=== PATIENT | female | born 2000 | race Caucasian/White ===

== ENCOUNTER 2019-06-23 22:08 | Emergency (ER) | payer MEDICAID, SELFPAY ==
--- NOTE | 2019-06-23 22:13 | ED_ITS ---
Entered by Lori Decker, acting as scribe for Janki Sheikh MD HPI - Skin/Abscess/Foreign Bdy General: Chief complaint: Skin/Abscess/Foreign Body Stated complaint: POSS INFECTION R ARM Time Seen by Provider: 06/23/19 22:13 Source: patient Mode of arrival: ambulatory History of Present Illness: HPI narrative: 18 y/ female presents to the ED with complaint of possible right arm infection. Pt states she noticed the red spot just today. She believed it to be a spider bite. 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 Slight pain that is sharp in nature. complaint: abscess/boil Onset (ago): hour(s) Location: RUE Severity: mild Pain Consistency: constant Associated symptoms: Deny chills, fever(s), nausea or vomiting Review of Systems Const: Denies: fever, chills, body aches or change in appetite Eyes: Denies: blurry vision or eye discomfort ENMT: Denies: throat pain or dental pain Card: Denies: chest pain Resp: Denies: shortness of breath GI: Denies: abdominal pain, nausea, vomiting or diarrhea : Denies: painful urination Musc: Denies: neck pain or back pain Skin/Breast: Reports: redness, skin tenderness, skin swelling and new lesion Neuro: Denies: headache Psych: Denies: depression Yfn/Lymph: Denies: easy bruising All/Imm: Denies: hives PFSH ED PFSH: Social History Smoking and tobacco status: current every day smoker Physical Exam Const: COMMON NORMALS: no apparent distress, oriented x3 and healthy appearing HENMT: COMMON NORMALS: normocephalic and head/scalp atraumatic HEAD & SCALP: normocephalic and atraumatic Eye: COMMON NORMALS: PERRL and EOMs intact bilaterally PUPIL: Yes PERRL Neck/C-Spine: COMMON NORMALS: full ROM and supple Chest: COMMONS NORMALS: inspection of chest normal and palpation of chest normal Resp: COMMON NORMALS: normal respiratory effort, no retractions, no use of accessory muscles and clear to auscultation bilaterally AUSCULTATION: clear to auscultation bilaterally Cardio: COMMON NORMALS: regular rate, regular rhythm and no murmurs RATE: regular rate RHYTHM: regular rhythm GI: COMMON NORMALS: normal to inspection, nondistended, normoactive bowel sounds, soft to palpation, non-tender and no masses PALPATION: Yes soft Extremity: COMMON NORMALS: normal to inspection and full ROM Neuro: COMMON NORMALS: oriented x3, moves all extremities and no focal motor deficits Psych: COMMON NORMALS: mental status grossly normal, thought process normal and cooperative THOUGHT PROCESS: normal thought process Skin: OTHER: abscess noted to right forearm Procedures Abscess I/D Site: upper extremity Side (if applicable): right Local Anesthetic: lidocaine 1% Amount of anesthesia used (mL): 5 Technique: incised with #11 blade Amount of fluid expressed (mL): 5 Packing used?: none Course Vital Signs: Vital signs: Vital Signs Temperature 97.9 F 06/23/19 22:19 Pulse Rate 86 06/23/19 22:19 Respiratory Rate 18 06/23/19 22:19 Blood Pressure 133/96 06/23/19 22:19 Pulse Oximetry 99 06/23/19 22:19 MDM - Skin/Abscess/Foreign Bdy MDM Narrative: Medical decision making narrative: Patient presents here with a small abscess to his right forearm. I incised her abscess and drained it. She tolerated procedure well. Will start patient on Bactrim and she is to do warm soaks at home. Patient understands and agrees to plan. Discharge Plan Discharge Patient Disposition: Home, Self-Care Clinical Impression: Abscess of skin or subcutaneous tissue Qualifiers: Site of cutaneous abscess: extremity Site of cutaneous abscess of extremity: upper extremity Laterality: right Qualified Code(s): L02.413 - Cutaneous abscess of right upper limb Condition: Stable Prescriptions: New Bactrim DS 800-160 mg tablet 1 tab PO BID 10 Days Qty: 20 RF: 0 Discharge Orders: Discharge Order (Routine); Ordered 06/23/19 Ordered By: Janki Sheikh Referrals: Saumya Leija MD [Primary Care Provider] - Discharge Diet: Advance as tolerated Discharge Activity: Resume usual activity Patient Instructions: Abscess (ED) Coding Level of Care Code 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
[2019-06-23 22:19] VITALS: BP 133/96; PULSE 86; RESP 18; TEMP 36.6; O2SAT 99; BMI 40.3
[2019-06-23 22:33] VITALS: BP 113/59; PULSE 88; RESP 17; O2SAT 98
== END 2019-06-23 22:33 | disposition home or self-care (01) ==
LOC: ER 22:22
PROVIDERS: Emergency Provider Emergency Medicine; PCP Pediatrics Adolescent Medicine
DX: L02.413 Cutaneous abscess of right upper limb (principal); F17.200 Nicotine dependence, unspecified, uncomplicated
CPT/HCPCS: 10060; 12345; 99281; 99282

== ENCOUNTER 2020-02-09 17:39 | Emergency (ER) | payer MEDICAID, SELFPAY ==
[2020-02-09 18:07] VITALS: PULSE 90; RESP 18; TEMP 36.3; O2SAT 99; BMI 48.0
--- NOTE | 2020-02-09 18:57 | ED_ITS ---
HPI - Headache General: Chief Complaint: Headache Stated Complaint: Migraine 1 week Time Seen by Provider: 02/09/20 18:42 History of Present Illness: HPI Narrative: Patient states that she had a migraine about a week similar to her other migraine she has had but is been about 4 years ago. Denies any stress injury or other problems going on her life. Says she is 80 days later and. She did have a couple test that were positive at the start then a couple that were negative then she went to her primary care provider today reyna labs as said she had a hormone that said she can carry baby but she generally think she is now but like to be checked. MD elicited complaint: migraine Pertinent past history: migraines Onset (ago): day(s) Onset description: gradually Location: frontal and temporal Severity: moderate Quality & Timing: throbbing and dull Exacerbating factors: none, light and noise Relieving factors: dark room Associated symptoms: Reports no associated symptoms; Deny chest pain, fever(s), nausea, rash or vomiting Treatments prior to arrival: none Review of Systems Const: Denies: fever(s), chills or body aches Eyes: Denies: change in vision or blurry vision ENMT: Denies: throat pain or nasal congestion Card: Denies: chest pain or dyspnea on exertion Resp: Denies: dyspnea, productive cough or non-productive cough GI: Denies: abdominal pain, nausea or vomiting : Reports: amenorrhea Musc: Denies: extremity pain Skin/Breast: Denies: rash Neuro: Reports: headache(s) Psych: Denies: anxiety or depression Yfn/Lymph: Denies: easy bruising PFSH ED PFSH: Social History Smoking and tobacco status: current every day smoker Physical Exam Const: COMMON NORMALS: no acute distress, average body habitus and patient oriented x3 HENMT: COMMON NORMALS: normocephalic HEAD & SCALP: normal to inspection and normocephalic FACE & SINUS: normal facial exam Eye: COMMON NORMALS: conjunctivae normal GENERAL EYE: appearance normal, both eyes and all related structures CONJUNCTIVA: Yes conjunctivae normal Neck/C-Spine: COMMON NORMALS: no JVD Chest: COMMONS NORMALS: normal inspection of the chest Resp: COMMON NORMALS: normal respiratory effort and clear to auscultation bilaterally AUSCULTATION: clear to auscultation bilaterally Cardio: COMMON NORMALS: no JVD, regular rate and regular rhythm RATE: regular rate RHYTHM: regular rhythm GI: COMMON NORMALS: Normal to inspection, nondistended, normoactive bowel sounds present Extremity: COMMON NORMALS: normal to inspection and full ROM Neuro: COMMON NORMALS: patient oriented x3 and CN's II-XII intact bilaterally Course Vital Signs: Vital signs: Vital Signs Temperature 97.3 F L 02/09/20 18:07 Pulse Rate 90 02/09/20 18:07 Respiratory Rate 18 02/09/20 18:07 Pulse Oximetry 99 02/09/20 18:07 MDM - Headache Lab Data: Labs: Lab Results 02/09/20 Range/Units 19:14 HCG, Qual Negative (Negative) Discharge Plan Discharge Patient Disposition: Home Clinical Impression: Amenorrhea Migraine Qualifiers: Migraine type: without aura Status migrainosus presence: without status migrainosus Intractability: intractable Qualified Code(s): G43.019 - Migraine without aura, intractable, without status migrainosus Condition: Stable Prescriptions: New sumatriptan succinate 50 mg tablet See Rx Instructions .ROUTE .COMPLEX Qty: 9 RF: 0 Discharge Orders: Discharge Order (Routine); Ordered 02/09/20 Ordered By: Dc Alcantara Referrals: Saumya Leija MD [Primary Care Provider] - Discharge Diet: Usual diet Discharge Activity: Increase activity as tolerated Patient Instructions: Migraine Headache (ED) Activity Restrictions/Additional Instructions: Follow-up with medical provider as directed. Take medications as prescribed. Return to the ER or your medical provider if condition worsens. Please read and understand discharge instructions. If any questions ask please. 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
[2020-02-09] MEDS: SUMAtriptan 6 mg/0.5 mL SDV SUBCUT (19:12)
[2020-02-09] MEDS: ondansetron 4 MG Tablet PO (19:12)
[2020-02-09 19:26] LABS: HCG Qualitative Urine. Negative (Negative)
== END 2020-02-09 20:27 | disposition home or self-care (01) ==
PROVIDERS: Emergency Provider Nurse Practitioner Family; PCP Pediatrics Adolescent Medicine
DX: G43.019 Migraine without aura, intractable, without status migrainosus (principal); N91.2 Amenorrhea, unspecified; F17.210 Nicotine dependence, cigarettes, uncomplicated
CPT/HCPCS: 12345; 81025; 96372; 99281; 99283; J3030; Q0162

== ENCOUNTER 2020-04-25 16:50 | Emergency (ER) | payer BC, MEDICAID, SELFPAY ==
[2020-04-25 16:54] VITALS: BP 136/86; PULSE 96; RESP 18; TEMP 36.3; O2SAT 97; BMI 43.2
--- NOTE | 2020-04-25 17:30 | W.ED.GENADLT ---
HPI - General Adult General: Chief complaint: General Medical Stated complaint: has asthma/sob Time Seen by Provider: 04/25/20 17:12 History of Present Illness: HPI narrative: Patient states that maybe she had an asthma attack earlier she went to get her inhaler and realize it was gone and then she used when she said she did not have much relief from that. She presents here with a history of shortness of breath asthma attack earlier today but feeling fine now. MD complaint: Possible asthma attack post Onset (ago): hour(s) Severity: mild Severity scale (1-10): 1 Exacerbating factors: none Associated symptoms: Reports no associated symptoms; Deny chest pain, dyspnea, headache(s), nausea, rash or vomiting Review of Systems Const: Denies: fever(s), chills or body aches Eyes: Denies: change in vision or blurry vision ENMT: Denies: throat pain or nasal congestion Card: Denies: chest pain or dyspnea on exertion Resp: Reports: wheezing (Now gone); Denies: dyspnea, productive cough or non-productive cough GI: Denies: abdominal pain, nausea or vomiting Musc: Denies: extremity pain Skin/Breast: Denies: rash Neuro: Denies: headache(s) Psych: Denies: anxiety or depression Yfn/Lymph: Denies: easy bruising PFSH ED PFSH: Social History Smoking and tobacco status: current every day smoker Physical Exam Const: COMMON NORMALS: no acute distress, average body habitus and patient oriented x3 HENMT: COMMON NORMALS: normocephalic HEAD & SCALP: normal to inspection and normocephalic FACE & SINUS: normal facial exam Eye: COMMON NORMALS: conjunctivae normal GENERAL EYE: appearance normal, both eyes and all related structures CONJUNCTIVA: Yes conjunctivae normal Neck/C-Spine: COMMON NORMALS: no JVD Chest: COMMONS NORMALS: normal inspection of the chest Resp: COMMON NORMALS: normal respiratory effort and clear to auscultation bilaterally AUSCULTATION: clear to auscultation bilaterally Cardio: COMMON NORMALS: no JVD, regular rate and regular rhythm RATE: regular rate RHYTHM: regular rhythm GI: COMMON NORMALS: Normal to inspection, nondistended, normoactive bowel sounds present Extremity: COMMON NORMALS: normal to inspection and full ROM Neuro: COMMON NORMALS: patient oriented x3 Course Vital Signs: Vital signs: Vital Signs Temperature 97.3 F L 04/25/20 16:54 Pulse Rate 96 04/25/20 16:54 Respiratory Rate 18 04/25/20 16:54 Blood Pressure 136/86 04/25/20 16:54 Pulse Oximetry 97 04/25/20 16:54 Discharge Plan Discharge Patient Disposition: Home Clinical Impression: Asthma Qualifiers: Asthma severity: mild Asthma persistence: intermittent Asthma complication type: uncomplicated Qualified Code(s): J45.20 - Mild intermittent asthma, uncomplicated Condition: Stable Prescriptions: New Proventil HFA 90 mcg/actuation HFA aerosol inhaler 3 inh inhalation Q4H PRN (Reason: shortness of breath or wheezing) Qty: 18 RF: 0 No Action multivitamin Tablet 1 tab PO DAILY@06 RF: 0 metformin 500 mg tablet 500 mg PO DAILY@06 RF: 0 aspirin 325 mg Tablet 325 mg PO PRN RF: 0 Benadryl 25 mg Capsule 25 mg PO PRN RF: 0 Discharge Orders: Discharge ED (Routine); Ordered 04/25/20 Ordered By: Dc Alcantara Referrals: Farideh Metz FNP [Primary Care Provider] - Discharge Diet: Usual diet Discharge Activity: Resume usual activity Patient Instructions: Asthma (ED) Activity Restrictions/Additional Instructions: Follow-up with medical provider as directed. Take medications as prescribed. Return to the ER or your medical provider if condition worsens. Please read and understand discharge instructions. If any questions ask please. 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
[2020-04-25 17:32] VITALS: PULSE 94; RESP 20; O2SAT 98
== END 2020-04-25 17:34 | disposition home or self-care (01) ==
PROVIDERS: Emergency Provider Nurse Practitioner Family; PCP Nurse Practitioner Family
DX: J45.20 Mild intermittent asthma, uncomplicated (principal); Z79.82 Long term (current) use of aspirin; Z79.84 Long term (current) use of oral hypoglycemic drugs; F17.210 Nicotine dependence, cigarettes, uncomplicated
CPT/HCPCS: 12345; 99281

== ENCOUNTER 2020-10-08 01:04 | Emergency (ER) | payer BC, MEDICAID, SELFPAY ==
[2020-10-08 01:10] VITALS: BP 151/79; PULSE 70; RESP 18; TEMP 36.7; O2SAT 97; BMI 46.5
--- NOTE | 2020-10-08 01:37 | ED_ITS ---
Documented by User: NESSA Manning 10/08/20 17:17 HPI - Abdominal Pain General: Chief Complaint: Abdominal Pain Stated Complaint: ABDOMINAL PAIN Time Seen by Provider: 10/08/20 01:23 Source: patient Mode of arrival: ambulatory Limitations: no limitations History of Present Illness: HPI narrative: Patient is a 20-year-old female who presents to ED today with complaint of mid abdominal pain over the past 3 days. Patient tells me pain began fairly quickly and has progressed over the past 3 days. She is having occasional nausea. She had one episode of non-bloody emesis today. She has had normal bowel movements. She has no urinary complaints. She just finished with her menstrual cycle. No fevers, body aches, chills. MD elicited complaint: abdominal pain Pertinent past history: none Radiation: none Migration to: no migration Exacerbating factors: nothing Relieving factors: nothing Associated Symptoms: Reports nausea and vomiting; Denies change in bowel habits, chills, diarrhea, dysuria, fever(s), heartburn and hematemesis Related Data: Date of Last Menstrual Period: 10/08/20 Review of Systems Const: Denies: fever(s), chills, body aches, fatigue or malaise Card: Denies: chest pain Resp: Denies: dyspnea GI: Reports: abdominal pain, nausea and vomiting; Denies: hematemesis, heartburn, diarrhea or change in bowel habits : Denies: flank pain, difficulty voiding, dysuria, urinary frequency, urinary urgency or urinary hesitancy Musc: Denies: neck pain, back pain, extremity pain or joint pain Skin/Breast: Denies: rash Neuro: Denies: headache(s) [facility] ED PFSH: Social History Smoking and tobacco status: current every day smoker Female Reproductive History: Date of last menstrual period: 10/08/20 Physical Exam Const: COMMON NORMALS: no acute distress, patient oriented x3, no limitations and alert NUTRITIONAL APPEARANCE: obese morbidly obese ORIENTATION/CONSCIOUSNESS: Yes awake, Yes oriented to person, Yes oriented to place and Yes oriented to time HENMT: COMMON NORMALS: normocephalic and atraumatic HEAD & SCALP: normocephalic and atraumatic Resp: COMMON NORMALS: normal respiratory effort and clear to auscultation bilaterally AUSCULTATION: clear to auscultation bilaterally Cardio: COMMON NORMALS: regular rate and regular rhythm RATE: regular rate RHYTHM: regular rhythm GI: COMMON NORMALS: Normal to inspection, nondistended, normoactive bowel soun ds present and Soft to palpation INSPECTION: Yes normal to inspection PALPATION: Yes Soft to palpation and Yes Tenderness to palpation present (GI) (diffusely) OTHER: exam limited secondary to body habitus : COMMON NORMALS: Yes no CVA tenderness BLADDER/KIDNEY EXAM: Yes no CVA tenderness Back/Pelvis: COMMON NORMALS: no CVA tenderness Extremity: COMMON NORMALS: normal to inspection Neuro: COMMON NORMALS: patient oriented x3 SENSORIUM/ORIENTATION: Yes alert, Yes oriented to person, Yes oriented to place and Yes oriented to time Skin: COMMON NORMALS: no rashes or lesions noted GENERAL SKIN EXAM: no rashes or lesions noted Course Vital Signs: Vital signs: Vital Signs Temperature 98.1 F 10/08/20 05:28 Pulse Rate 77 10/08/20 05:28 Respiratory Rate 15 10/08/20 05:28 Blood Pressure 112/80 10/08/20 05:28 Pulse Oximetry 97 10/08/20 05:28 MDM - Abdominal Pain MDM Narrative: Medical decision making narrative: Care transferred to Dr. Wood pending labs/CT imaging. Lab Data: Labs: Lab Results 10/08/20 10/08/20 10/08/20 Range/Units 02:51 02:51 02:51 WBC 8.2 (4.0-10.0) 10^3/ uL RBC 4.48 (4.1-5.3) 10^6/u L Hgb 13.0 (11.5-15.3) g/dL Hct 40.4 (37.0-47.0) % MCV 90.2 (81-99) fL MCH 29.0 (28.0-34.0) pg MCHC 32.2 (30.0-36.0) g/dL RDW 12.6 (12.1-15.1) % Plt Count 265 (130-400) 10^3/c mm MPV 9.4 (7.4-10.4) fL Neut % (Auto) 49.2 % Lymph % (Auto) 40.9 % Mitchell % (Auto) 7.2 % Eos % (Auto) 1.6 % Baso % (Auto) 0.9 % Neut # (Auto) 4.04 (1.8-7.7) 10^3/u L Lymph # (Auto) 3.4 (0.8-4.8) 10^3/u L Mitchell # (Auto) 0.6 (0.2-0.9) 10^3/u L Eos # (Auto) 0.1 (0.0-0.8) 10^3/u L Baso # (Auto) 0.1 (0.0-0.1) 10^3/u L Nucleated RBC % (a uto) 0 % Nucleated RBCs # 0.0 /100WBC Sodium 139 (136-145) mmol/L Potassium 4.2 (3.5-5.1) mmol/L Chloride 104 (98-107) mmol/L Carbon Dioxide 24 (22-29) mmol/L Anion Gap 15.2 (5-19) BUN 13 (6-20) mg/dL Creatinine 0.7 (0.5-0.9) mg/dL GFR Calculation 105.6 (90-130) mL/min Glucose 95 (65-115) mg/dL Calculated Osmolal ity 288 (285-295) mOsm/k g Calcium 9.1 (8.5-10.5) mg/dL Total Bilirubin 0.3 (0.15-1.2) mg/dL AST 18 (0-32) U/L ALT 23 (0-33) U/L Alkaline Phosphata se 77 (35-105) IU/L Total Protein 6.6 (6.6-8.7) g/dL Albumin 4.0 (3.5-5.2) g/dL Globulin 2.6 (1.3-4.6) g/dL Lipase 21 (13-60) U/L HCG, Qual Negative (Negative) Urine Color (Yellow) Urine Appearance (CLEAR) Urine pH (5-7) Ur Specific Gravit y (1.005-1.030) Urine Protein (Negative) Urine Glucose (UA) (Normal) Urine Ketones (Negative) Urine Blood (Negative) Urine Nitrate (Negative) Urine Bilirubin (Negative) Urine Urobilinogen (Negative) mg/dL Ur Leukocyte Zoe ase (Negative) 10/08/20 Range/Units 02:59 WBC (4.0-10.0) 10^3/ uL RBC (4.1-5.3) 10^6/u L Hgb (11.5-15.3) g/dL Hct (37.0-47.0) % MCV (81-99) fL MCH (28.0-34.0) pg MCHC (30.0-36.0) g/dL RDW (12.1-15.1) % Plt Count (130-400) 10^3/c mm MPV (7.4-10.4) fL Neut % (Auto) % Lymph % (Auto) % Mitchell % (Auto) % Eos % (Auto) % Baso % (Auto) % Neut # (Auto) (1.8-7.7) 10^3/u L Lymph # (Auto) (0.8-4.8) 10^3/u L Mitchell # (Auto) (0.2-0.9) 10^3/u L Eos # (Auto) (0.0-0.8) 10^3/u L Baso # (Auto) (0.0-0.1) 10^3/u L Nucleated RBC % (a uto) % Nucleated RBCs # /100WBC Sodium (136-145) mmol/L Potassium (3.5-5.1) mmol/L Chloride (98-107) mmol/L Carbon Dioxide (22-29) mmol/L Anion Gap (5-19) BUN (6-20) mg/dL Creatinine (0.5-0.9) mg/dL GFR Calculation (90-130) mL/min Glucose (65-115) mg/dL Calculated Osmolal ity (285-295) mOsm/k g Calcium (8.5-10.5) mg/dL Total Bilirubin (0.15-1.2) mg/dL AST (0-32) U/L ALT (0-33) U/L Alkaline Phosphata se (35-105) IU/L Total Protein (6.6-8.7) g/dL Albumin (3.5-5.2) g/dL Globulin (1.3-4.6) g/dL Lipase (13-60) U/L HCG, Qual (Negative) Urine Color Yellow (Yellow) Urine Appearance Clear (CLEAR) Urine pH 6.5 (5-7) Ur Specific Gravit y 1.015 (1.005-1.030) Urine Protein Neg (Negative) Urine Glucose (UA) Norm (Normal) Urine Ketones Negative (Negative) Urine Blood Neg (Negative) Urine Nitrate Negative (Negative) Urine Bilirubin Neg (Negative) Urine Urobilinogen 1 H (Negative) mg/dL Ur Leukocyte Zoe ase Negative (Negative) Discharge Plan Discharge Patient Disposition: Home Clinical Impression: Abdominal pain Qualifiers: Abdominal location: generalized Qualified Code(s): R10.84 - Generalized abdominal pain Condition: Stable Prescriptions: New hydrocodone-acetaminophen 5-325 mg tablet 1 tab PO Q8H PRN (Reason: pain) Qty: 7 RF: 0 Zofran 4 mg tablet 4 mg PO Q6H PRN (Reason: nausea and vomiting) Qty: 10 RF: 0 No Action multivitamin Tablet 1 tab PO DAILY@06 RF: 0 metformin 500 mg tablet 500 mg PO DAILY@06 RF: 0 aspirin 325 mg Tablet 325 mg PO PRN RF: 0 Benadryl 25 mg Capsule 25 mg PO PRN RF: 0 Proventil HFA 90 mcg/actuation HFA aerosol inhaler 3 inh inhalation Q4H PRN (Reason: shortness of breath or wheezing) Qty: 18 RF: 0 Discharge Orders: Discharge ED (Routine); Ordered 10/08/20 Ordered By: Jitendra Wood Referrals: Farideh Metz FNP [Primary Care Provider] - 4-7 days Patient Instructions: Abdominal Pain (ED), Opioid Safety Activity Restrictions/Additional Instructions: Return for fever greater than 100, worsening pain despite treatment, vomiting liquids or medications despite treatment, other concerning symptoms. No cause of your abdominal pain was found on testing today. Coding Level of Care Code ED Insurance Verification Specialist for Chg Fwd Exam Comprehensive Documented by User: Jitendra oWod, 10/08/20 07:06 HPI - Abdominal Pain General: Chief Complaint: Abdominal Pain Stated Complaint: ABDOMINAL PAIN Time Seen by Provider: 10/08/20 01:23 PFS ED PFSH: Social History Smoking and tobacco status: current every day smoker Course Vital Signs: Vital signs: Vital Signs Temperature 98.1 F 10/08/20 05:28 Pulse Rate 77 10/08/20 05:28 Respiratory Rate 15 10/08/20 05:28 Blood Pressure 112/80 10/08/20 05:28 Pulse Oximetry 97 10/08/20 05:28 MDM - Abdominal Pain MDM Narrative: Medical decision making narrative: 20-year-old female with periumbilical belly pain checked out to me by Mrs. Larsen?PRANAV Boo. I agree with her history, evaluation, work-up and treatment. This lady has benign labs, and a negative CT for any acute problems. She will be discharged home with symptomatic care, and asked to follow-up with her PCP. Lab Data: Labs: Lab Results 10/08/20 10/08/20 10/08/20 Range/Units 02:51 02:51 02:51 WBC 8.2 (4.0-10.0) 10^3/ uL RBC 4.48 (4.1-5.3) 10^6/u L Hgb 13.0 (11.5-15.3) g/dL Hct 40.4 (37.0-47.0) % MCV 90.2 (81-99) fL MCH 29.0 (28.0-34.0) pg MCHC 32.2 (30.0-36.0) g/dL RDW 12.6 (12.1-15.1) % Plt Count 265 (130-400) 10^3/c mm MPV 9.4 (7.4-10.4) fL Neut % (Auto) 49.2 % Lymph % (Auto) 40.9 % Mitchell % (Auto) 7.2 % Eos % (Auto) 1.6 % Baso % (Auto) 0.9 % Neut # (Auto) 4.04 (1.8-7.7) 10^3/u L Lymph # (Auto) 3.4 (0.8-4.8) 10^3/u L Mitchell # (Auto) 0.6 (0.2-0.9) 10^3/u L Eos # (Auto) 0.1 (0.0-0.8) 10^3/u L Baso # (Auto) 0.1 (0.0-0.1) 10^3/u L Nucleated RBC % (a uto) 0 % Nucleated RBCs # 0.0 /100WBC Sodium 139 (136-145) mmol/L Potassium 4.2 (3.5-5.1) mmol/L Chloride 104 (98-107) mmol/L Carbon Dioxide 24 (22-29) mmol/L Anion Gap 15.2 (5-19) BUN 13 (6-20) mg/dL Creatinine 0.7 (0.5-0.9) mg/dL GFR Calculation 105.6 (90-130) mL/min Glucose 95 (65-115) mg/dL Calculated Osmolal ity 288 (285-295) mOsm/k g Calcium 9.1 (8.5-10.5) mg/dL Total Bilirubin 0.3 (0.15-1.2) mg/dL AST 18 (0-32) U/L ALT 23 (0-33) U/L Alkaline Phosphata se 77 (35-105) IU/L Total Protein 6.6 (6.6-8.7) g/dL Albumin 4.0 (3.5-5.2) g/dL Globulin 2.6 (1.3-4.6) g/dL Lipase 21 (13-60) U/L HCG, Qual Negative (Negative) Urine Color (Yellow) Urine Appearance (CLEAR) Urine pH (5-7) Ur Specific Gravit y (1.005-1.030) Urine Protein (Negative) Urine Glucose (UA) (Normal) Urine Ketones (Negative) Urine Blood (Negative) Urine Nitrate (Negative) Urine Bilirubin (Negative) Urine Urobilinogen (Negative) mg/dL Ur Leukocyte Zoe ase (Negative) 10/08/20 Range/Units 02:59 WBC (4.0-10.0) 10^3/ uL RBC (4.1-5.3) 10^6/u L Hgb (11.5-15.3) g/dL Hct (37.0-47.0) % MCV (81-99) fL MCH (28.0-34.0) pg MCHC (30.0-36.0) g/dL RDW (12.1-15.1) % Plt Count (130-400) 10^3/c mm MPV (7.4-10.4) fL Neut % (Auto) % Lymph % (Auto) % Mitchell % (Auto) % Eos % (Auto) % Baso % (Auto) % Neut # (Auto) (1.8-7.7) 10^3/u L Lymph # (Auto) (0.8-4.8) 10^3/u L Mitchell # (Auto) (0.2-0.9) 10^3/u L Eos # (Auto) (0.0-0.8) 10^3/u L Baso # (Auto) (0.0-0.1) 10^3/u L Nucleated RBC % (a uto) % Nucleated RBCs # /100WBC Sodium (136-145) mmol/L Potassium (3.5-5.1) mmol/L Chloride (98-107) mmol/L Carbon Dioxide (22-29) mmol/L Anion Gap (5-19) BUN (6-20) mg/dL Creatinine (0.5-0.9) mg/dL GFR Calculation (90-130) mL/min Glucose (65-115) mg/dL Calculated Osmolal ity (285-295) mOsm/k g Calcium (8.5-10.5) mg/dL Total Bilirubin (0.15-1.2) mg/dL AST (0-32) U/L ALT (0-33) U/L Alkaline Phosphata se (35-105) IU/L Total Protein (6.6-8.7) g/dL Albumin (3.5-5.2) g/dL Globulin (1.3-4.6) g/dL Lipase (13-60) U/L HCG, Qual (Negative) Urine Color Yellow (Yellow) Urine Appearance Clear (CLEAR) Urine pH 6.5 (5-7) Ur Specific Gravit y 1.015 (1.005-1.030) Urine Protein Neg (Negative) Urine Glucose (UA) Norm (Normal) Urine Ketones Negative (Negative) Urine Blood Neg (Negative) Urine Nitrate Negative (Negative) Urine Bilirubin Neg (Negative) Urine Urobilinogen 1 H (Negative) mg/dL Ur Leukocyte Zoe ase Negative (Negative) Discharge Plan Discharge Patient Disposition: Home Clinical Impression: Abdominal pain Qualifiers: Abdominal location: generalized Qualified Code(s): R10.84 - Generalized abdominal pain Condition: Stable Prescriptions: New hydrocodone-acetaminophen 5-325 mg tablet 1 tab PO Q8H PRN (Reason: pain) Qty: 7 RF: 0 Zofran 4 mg tablet 4 mg PO Q6H PRN (Reason: nausea and vomiting) Qty: 10 RF: 0 No Action multivitamin Tablet 1 tab PO DAILY@06 RF: 0 metformin 500 mg tablet 500 mg PO DAILY@06 RF: 0 aspirin 325 mg Tablet 325 mg PO PRN RF: 0 Benadryl 25 mg Capsule 25 mg PO PRN RF: 0 Proventil HFA 90 mcg/actuation HFA aerosol inhaler 3 inh inhalation Q4H PRN (Reason: shortness of breath or wheezing) Qty: 18 RF: 0 Discharge Orders: Discharge ED (Routine); Ordered 10/08/20 Ordered By: Jitendra Wood Referrals: Farideh Metz FNP [Primary Care Provider] - 4-7 days Patient Instructions: Abdominal Pain (ED), Opioid Safety Activity Restrictions/Additional Instructions: Return for fever greater than 100, worsening pain despite treatment, vomiting liquids or medications despite treatment, other concerning symptoms. No cause of your abdominal pain was found on testing today. Coding Level of Care Code ED Insurance Verification Specialist for Chg Fwd Exam Comprehensive
--- NOTE | 2020-10-08 02:03 | CTR_ITS ---
PROCEDURE INFORMATION: Exam: CT Abdomen And Pelvis With Contrast Exam date and time: 10/08/2020 2:03 AM Age: 20 years old Clinical indication: Abdominal pain; Generalized TECHNIQUE: Imaging protocol: Computed tomography of the abdomen and pelvis with contrast. Radiation optimization: All CT scans at this facility use at least one of these dose optimization techniques: automated exposure control; mA and/or kV adjustment per patient size (includes targeted exams where dose is matched to clinical indication); or iterative reconstruction. Contrast material: VISI; Contrast volume: 95 ml; Contrast route: INTRAVENOUS (IV); COMPARISON: US pelvic complete* [id number] 08/16/2019 10:44 AM RADIATION DOSE METRICS: Total DLP (mGy-cm): 1910.6 FINDINGS: Liver: Normal. No mass. Gallbladder and bile ducts: Normal. No calcified stones. No ductal dilation. Pancreas: Normal. No ductal dilation. Spleen: Normal. No splenomegaly. Adrenal glands: Normal. No mass. Kidneys and ureters: Normal. No hydronephrosis. Stomach and bowel: Moderate stool is present within the colon in its entirety. Appendix: The appendix is visualized and is normal in configuration. Intraperitoneal space: Unremarkable. No free air. No significant fluid collection. Vasculature: Unremarkable. No abdominal aortic aneurysm. Lymph nodes: Unremarkable. No enlarged lymph nodes. Urinary bladder: Unremarkable as visualized. Reproductive: Unremarkable as visualized. Bones/joints: Unremarkable. No acute fracture. Soft tissues: Unremarkable. CT/CT abdomen pelvis w con* [id number] IMPRESSION: There are no acute abdominal findings. Radiation Dose CTDIVOL = (mGy): DLP = 1910.6 (mGy-cm)
[2020-10-08 02:44] VITALS: BP 126/55; PULSE 82; RESP 15; O2SAT 96
[2020-10-08 03:16] LABS: Basophils # 0.1 10^3/uL (0.0-0.1); Basophils % 0.9 %; Eosinophils # 0.1 10^3/uL (0.0-0.8); Eosinophils % 1.6 %; Hematocrit 40.4 % (37.0-47.0); Lymphocytes # 3.4 10^3/uL (0.8-4.8); Lymphocytes % 40.9 %; Mean Corpuscular HGB Conc 32.2 g/dL (30.0-36.0); Mean Corpuscular Volume 90.2 fL (81-99); Mean Platelet Volume 9.4 fL (7.4-10.4); Monocytes # 0.6 10^3/uL (0.2-0.9); Monocytes % 7.2 %; Neutrophils # 4.04 10^3/uL (1.8-7.7); Neutrophils % 49.2 %; Nucleated Red Blood Cells % 0 %; Platelet Count 265 10^3/cmm (130-400); Red Blood Count 4.48 10^6/uL (4.1-5.3); Red Cell Distribution Width 12.6 % (12.1-15.1); White Blood Count 8.2 10^3/uL (4.0-10.0)
[2020-10-08 03:24] LABS: Add Urine Microscopic? NO; Charge for UA Resulting for Rev
[2020-10-08 03:33] LABS: HCG, Serum Qual Negative (Negative)
[2020-10-08 03:36] LABS: Bilirubin Urine Neg (Negative); Blood Urine Neg (Negative); Glucose Urine UA Norm (Normal); Ketones Urine Negative (Negative); Leukocyte Esterase Urine Negative (Negative); Nitrate Urine Negative (Negative); Protein Urine Neg (Negative); Specific Gravity, Urine 1.015 (1.005-1.030); Urine Appearance Clear (CLEAR); Urine Color Yellow (Yellow); Urobilinogen Urine 1 mg/dL (Negative); pH Urine 6.5 (5-7)
[2020-10-08 03:46] LABS: Alanine Aminotransferase 23 U/L (0-33); Alkaline Phosphatase 77 IU/L (35-105); Anion Gap 15.2 (5-19); Aspartate Amino Transferase 18 U/L (0-32); Blood Urea Nitrogen 13 mg/dL (6-20); Calcium 9.1 mg/dL (8.5-10.5); Carbon Dioxide 24 mmol/L (22-29); Chloride 104 mmol/L (98-107); Globulin 2.6 g/dL (1.3-4.6); Glomerular Filtration Rate 105.6 mL/min (90-130); Glucose 95 mg/dL (65-115); Lipase 21 U/L (13-60); Osmolality Calculated 288 mOsm/kg (285-295); Potassium 4.2 mmol/L (3.5-5.1); Sodium 139 mmol/L (136-145); Total Bilirubin 0.3 mg/dL (0.15-1.2); Total Protein 6.6 g/dL (6.6-8.7)
[2020-10-08] MEDS: iodixanol 320 mg/mL 100mL Btl IV (03:50)
[2020-10-08 05:28] VITALS: BP 112/80; PULSE 77; RESP 15; TEMP 36.7; O2SAT 97
== END 2020-10-08 05:29 | disposition home or self-care (01) ==
PROVIDERS: Physician Assistant; Emergency Provider Emergency Medicine; PCP Nurse Practitioner Family
DX: R10.84 Generalized abdominal pain (principal); Z79.82 Long term (current) use of aspirin; Z79.84 Long term (current) use of oral hypoglycemic drugs; F17.210 Nicotine dependence, cigarettes, uncomplicated
CPT/HCPCS: 74177; 80053; 81003; 83690; 84703; 85025; 99283; Q9967

== ENCOUNTER 2020-12-20 00:38 | Emergency (ER) | payer BC, MEDICAID, SELFPAY ==
[2020-12-20 01:07] VITALS: BP 154/83; PULSE 83; RESP 14; TEMP 36.7; O2SAT 97; BMI 51.0
[2020-12-20 01:29] VITALS: BP 112/64; PULSE 82; RESP 22; TEMP 37.1; O2SAT 97
--- NOTE | 2020-12-20 01:29 | ED_ITS ---
HPI - Neck Pain/Injury General: Chief Complaint: Neck Pain/Injury Stated Complaint: Sharp pain Back of Neck Time Seen by Provider: 12/20/20 00:40 History of Present Illness: HPI Narrative: Patient has discomfort to the muscles in her back and neck area times couple days. 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 Denies any fever chills nausea vomiting or sore throat. MD complaint: neck pain and upper back pain Onset (ago): day(s) Severity: mild Severity scale (1-10): 2 Quality: sharp and aching Duration: constant Relieving factors: immobilization Exacerbating factors: movement of neck Associated symptoms: Reports no associated symptoms; Denies headache(s) or nausea Treatments prior to arrival: none Review of Systems Const: Denies: fever(s), chills or body aches Eyes: Denies: change in vision or blurry vision ENMT: Denies: throat pain or nasal congestion Card: Denies: chest pain or dyspnea on exertion Resp: Denies: dyspnea, productive cough or non-productive cough GI: Denies: abdominal pain, nausea or vomiting Musc: Reports: neck pain and back pain; Denies: extremity pain Skin/Breast: Denies: rash Neuro: Denies: headache(s) Psych: Denies: anxiety or depression Yfn/Lymph: Denies: easy bruising PFSH ED PFSH: Social History Smoking and tobacco status: current every day smoker Female Reproductive History: Date of last menstrual period: 10/12/20 Physical Exam Const: COMMON NORMALS: no acute distress GENERAL APPEARANCE: cooperative HENMT: FACE & SINUS: normal facial exam MOUTH: Normal oral and palatal mucosa present Neck/C-Spine: COMMON NORMALS: full ROM and Thyroid normal GENERAL: Yes normal visual inspection THYROID: Thyroid normal CERVICAL SPINE: Yes cervical ROM normal, No Cervical spine tenderness, Yes Paracervical muscle tenderness bilateral and left>right, No Paracervical spasm and Yes Trapezius muscle tenderness bilateral Resp: COMMON NORMALS: normal respiratory effort Extremity: COMMON NORMALS: normal to inspection Skin: COMMON NORMALS: no rashes or lesions noted GENERAL SKIN EXAM: no rashes or lesions noted Course Vital Signs: Vital signs: Vital Signs Temperature 98.8 F 12/20/20 01:29 Pulse Rate 82 12/20/20 01:29 Respiratory Rate 22 H 12/20/20 01:29 Blood Pressure 112/64 12/20/20 01:29 Pulse Oximetry 97 12/20/20 01:29 Discharge Plan Discharge Patient Disposition: Home Clinical Impression: Strain of neck muscle Qualifiers: Encounter type: initial encounter Qualified Code(s): S16.1XXA - Strain of muscle, fascia and tendon at neck level, initial encounter Condition: Stable Prescriptions: New prednisone 20 mg tablet 20 mg PO DAILY Qty: 7 RF: 0 Celebrex 100 mg capsule 100 mg PO BID Qty: 20 RF: 0 No Action multivitamin Tablet 1 tab PO DAILY@06 RF: 0 metformin 500 mg tablet 500 mg PO DAILY@06 RF: 0 aspirin 325 mg Tablet 325 mg PO PRN RF: 0 Benadryl 25 mg Capsule 25 mg PO PRN RF: 0 Proventil HFA 90 mcg/actuation HFA aerosol inhaler 3 inh inhalation Q4H PRN (Reason: shortness of breath or wheezing) Qty: 18 RF: 0 hydrocodone-acetaminophen 5-325 mg tablet 1 tab PO Q8H PRN (Reason: pain) Qty: 7 RF: 0 Zofran 4 mg tablet 4 mg PO Q6H PRN (Reason: nausea and vomiting) Qty: 10 RF: 0 Discharge Orders: Discharge ED (Routine); Ordered 12/20/20 Ordered By: Dc Alcantara Discharge Diet: Usual diet Discharge Activity: Increase activity as tolerated and Limit activity as instructed Patient Instructions: Muscle Strain (ED) Activity Restrictions/Additional Instructions: Follow-up with medical provider as directed. Take medications as prescribed. Return to the ER or your medical provider if condition worsens. Please read and understand discharge instructions. If any questions ask please. Alternate heat and ice to the neck muscles. Consider massage therapy to help with discomfort. No lifting over 10 pounds for next 2 weeks. Stand Alone Forms: Work/School Release Coding Level of Care Code ED Project Management Advisor for Jonh Jones
[2020-12-20] MEDS: CELEcoxib 200 mg Capsule 400 MG PO (01:48)
[2020-12-20] MEDS: predniSONE 20 mg Tablet 40 MG PO (01:48)
[2020-12-20 01:51] VITALS: BP 112/64; PULSE 88; RESP 18; O2SAT 98
== END 2020-12-20 01:52 | disposition home or self-care (01) ==
PROVIDERS: Emergency Provider Nurse Practitioner Family
DX: S16.1XXA Strain of muscle, fascia and tendon at neck level, initial encounter (principal); Z79.82 Long term (current) use of aspirin; Z79.84 Long term (current) use of oral hypoglycemic drugs; F17.210 Nicotine dependence, cigarettes, uncomplicated; X50.0XXA Overexertion from strenuous movement or load, initial encounter; Y93.F2 Activity, caregiving, lifting; Y92.129 Unspecified place in nursing home as the place of occurrence of the external cause; Y99.0 Civilian activity done for income or pay
CPT/HCPCS: 99283; J7512

== ENCOUNTER 2021-09-03 16:38 | Emergency (ER) | payer BC, MEDICAID, SELFPAY ==
[2021-09-03 16:42] VITALS: BP 132/89; PULSE 90; RESP 18; TEMP 36.8; O2SAT 100; BMI 36.6
--- NOTE | 2021-09-03 16:51 | XRR_ITS ---
PROCEDURE INFORMATION: Exam: XR Left Ankle Exam date and time: 09/03/2021 5:06 PM Age: 20 years old Clinical indication: Pain; Ankle; Left; Additional info: Injury TECHNIQUE: Imaging protocol: XR Left ankle. Views: 3 or more views. COMPARISON: No relevant prior studies available. FINDINGS: Bones/joints: Osseous structures are intact. Negative for fracture. Joint spaces are preserved. Soft tissues: Soft tissue swelling around the ankle. XR/XR ankle LT min 3V* [id number] IMPRESSION: No acute findings.
--- NOTE | 2021-09-03 16:51 | XRR_ITS ---
PROCEDURE INFORMATION: Exam: XR Left Foot Exam date and time: 09/03/2021 5:06 PM Age: 20 years old Clinical indication: Pain; Foot; Left; Additional info: Injury TECHNIQUE: Imaging protocol: XR Left foot. Views: 3 or more views. COMPARISON: No relevant prior studies available. FINDINGS: Bones/joints: Osseous structures are intact. Negative for fracture. Joint spaces are preserved. Soft tissues: Normal. XR/XR foot LT min 3V* [id number] IMPRESSION: No acute findings.
--- NOTE | 2021-09-03 16:52 | ED_ITS ---
HPI - Extremity Injury (Lower) General: Chief Complaint: Extremity Injury, Lower Stated Complaint: left foot injury Time Seen by Provider: 09/03/21 16:49 Source: patient Mode of arrival: wheelchair Limitations: no limitations History of Present Illness: Patient is a 20-year-old female presents to ED today for evaluation of a left foot/ankle injury. Patient tells me about 30 minutes ago she stepped into a pothole and rolled her foot and ankle. Patient states she is not able to bear weight secondary to discomfort. She has no other injuries or complaints at this time. complaint: ankle injury and foot injury Onset (ago): minute(s) Injury: Left: ankle and foot Severity: moderate Relieving factors: immobilization Exacerbating factors: weight bearing, movement and palpation Associated symptoms: Reports inability to bear weight Other symptoms: none Review of Systems Musc: Reports: extremity pain (L foot), extremity swelling (L foot), joint pain (L ankle) and joint swelling (L ankle); Denies: joint redness or joint warmth Neuro: Denies: numbness in extremities or sensory changes [facility] ED PFSH: Medical History Psychiatric care Social History Smoking and tobacco status: current every day smoker Female Reproductive History: Date of last menstrual period: 10/12/20 Physical Exam 2 Const: COMMON NORMALS: no acute distress, patient oriented x3, no limitations and alert GENERAL APPEARANCE: cooperative NUTRITIONAL APPEARANCE: obese ORIENTATION/CONSCIOUSNESS: Yes awake, Yes oriented to person, Yes oriented to place and Yes oriented to time Extremity: GENERAL: Yes normal exam except as noted LEFT LOWER EXTREMITY: Yes ankle joint Left ankle: Yes neurovascular exam (normal) and Yes foot & digits Left foot and digits: Yes neurovascular exam (normal) OTHER: TTP throughout ankle joint w/o obvious swelling or deformity; most of pain seems to be to the dorsal forefoot-mild swelling noted here Neuro: COMMON NORMALS: patient oriented x3 SENSORIUM/ORIENTATION: Yes alert, Yes oriented to person, Yes oriented to place and Yes oriented to time Course Vital Signs: Vital signs: Vital Signs Temperature 98.2 F 09/03/21 16:42 Pulse Rate 90 09/03/21 17:27 Respiratory Rate 18 09/03/21 17:27 Blood Pressure 132/89 09/03/21 17:27 Pulse Oximetry 100 09/03/21 17:27 MDM - Extremity Injury (Lower) Medical Decision Making XRs negative. Will DC with crutches/SHAHNAZ wrap and conservative treatment/RICE therapy at home. Follow up with PCP in 1-2 weeks for continued or non-improving pain. Lab Data Radiology Impressions Ankle X-Ray 09/03/21 16:51 IMPRESSION: No acute findings. Foot X-Ray 09/03/21 16:51 IMPRESSION: No acute findings. Discharge Plan Discharge Patient Disposition: Home Clinical Impression: Sprain of left foot Qualifiers: Encounter type: initial encounter Qualified Code(s): S93.602A - Unspecified sprain of left foot, initial encounter Condition: Stable Prescriptions: No Action multivitamin Tablet 1 tab PO DAILY@06 0RF metformin 500 mg tablet 500 mg PO DAILY@06 0RF aspirin 325 mg Tablet 325 mg PO PRN 0RF Benadryl 25 mg Capsule 25 mg PO PRN 0RF Proventil HFA 90 mcg/actuation HFA aerosol inhaler 3 inh inhalation Q4H PRN (Reason: shortness of breath or wheezing) Qty: 18 0RF Rx Instructions: until breathing returns to target peak flow/parameters hydrocodone-acetaminophen 5-325 mg tablet 1 tab PO Q8H PRN (Reason: pain) Qty: 7 0RF Zofran 4 mg tablet 4 mg PO Q6H PRN (Reason: nausea and vomiting) Qty: 10 0RF prednisone 20 mg tablet 20 mg PO DAILY Qty: 7 0RF Celebrex 100 mg capsule 100 mg PO BID Qty: 20 0RF Discharge Orders: Discharge ED (Routine); Ordered 09/03/21 Ordered By: Leonor Larsen Referrals: Farideh Metz FNP [Primary Care Provider] - Patient Instructions: Foot Sprain (ED), RICE Therapy Coding Level of Care Code ED Hand Edge Bander for Alexiag Fwd Exam Expanded Problem Focused
[2021-09-03 17:27] VITALS: BP 132/89; PULSE 90; RESP 18; O2SAT 100
== END 2021-09-03 17:59 | disposition home or self-care (01) ==
PROVIDERS: Emergency Provider Physician Assistant; PCP Nurse Practitioner Family
DX: S93.602A Unspecified sprain of left foot, initial encounter (principal); X50.1XXA Overexertion from prolonged static or awkward postures, initial encounter
CPT/HCPCS: 73610; 73630; 99283; E0114

== ENCOUNTER 2024-01-31 21:09 | Emergency (ER) | payer MEDICAID, SELFPAY ==
[2024-01-31 21:23] VITALS: BP 119/63; PULSE 105; RESP 18; TEMP 37; O2SAT 100; BMI 37.8
[2024-01-31 21:45] LABS: Rapid Strep A Test Negative (Negative)
--- NOTE | 2024-01-31 23:08 | W.ED.URI ---
HPI - URI/Sore Throat General: Chief Complaint: Upper Respiratory Infection Stated Complaint: sore throat, losing voice Time Seen by Provider: 01/31/24 22:12 History of Present Illness: Patient is a 23-year-old female that presents to the emergency department with complaints of sore throat. Onset of symptoms 4 days ago. Patient works difficulty swallowing foods. She reports a history of tonsillar stones. She denies fevers. Associated symptoms: Deny chills, fever(s), nausea or vomiting Related Data Home Medications Medication Instructions Recorded Confirmed diphenhydramine HCl 25 mg capsule 25 mg PO PRN 04/25/20 12/25/21 (Benadryl) cetirizine 10 mg tablet 10 mg PO DAILY 11/06/21 12/25/21 Previous Rx's Medication Instructions Recorded albuterol sulfate 90 mcg/actuation 3 inh inhalation Q4H PRN shortness 04/25/20 aerosol inhaler (Proventil HFA) of breath or wheezing #18 grams meloxicam 15 mg tablet 15 mg PO DAILY #30 tabs 12/25/21 trazodone 50 mg tablet 50 mg PO BEDTIME PRN insomnia #30 12/25/21 tabs Allergies Allergy/AdvReac Type Severity Reaction Status Date / Time acetaminophen [From Tylenol] AdvReac ADR-Agitate Verified 12/25/21 10:45 d Review of Systems General: Reports: 10 or more systems reviewed and unremarkable except in HPI and below Const: Denies: fever(s), chills or body aches Eyes: Denies: change in vision ENMT: Reports: throat pain, enlarged tonsils and odynophagia Resp: Denies: dyspnea or productive cough GI: Denies: nausea or vomiting Musc: Denies: back pain Skin/Breast: Denies: rash Psych: Reports: sleeping less PFSH ED PFSH: Social History Smoking and tobacco/nicotine status: current some day tobacco/nicotine user Physical Exam Const: COMMON NORMALS: no acute distress GENERAL APPEARANCE: cooperative ORIENTATION/CONSCIOUSNESS: Yes awake HENMT: COMMON NORMALS: normocephalic and atraumatic HEAD & SCALP: normocephalic and atraumatic FACE & SINUS: normal facial exam MOUTH: Normal oral and palatal mucosa present THROAT: posterior oropharynx normal Eye: COMMON NORMALS: Equal, round and reactive pupils present, EOMs intact bilaterally, conjunctivae normal and no scleral icterus GENERAL EYE: appearance normal, both eyes and all related structures ALIGNMENT: Yes alignment normal PERIORBITAL: periorbital findings normal CONJUNCTIVA: Yes conjunctivae normal PUPIL: Yes Equal, round and reactive pupils present Neck/C-Spine: COMMON NORMALS: full ROM GENERAL: Yes normal visual inspection Lymph: LYMPHATIC: no lymphadenopathy noted Chest: COMMONS NORMALS: normal inspection of the chest Breast/axilla inspection: Yes no chest deformity, asymmetry, normal contours, no nodules, masses, tenderness Resp: COMMON NORMALS: normal respiratory effort, No retractions and No use of accessory muscles EFFORT & INSPECTION: Yes able to speak in complete sentences and Yes symmetric chest movement Cardio: COMMON NORMALS: regular rate, regular rhythm and Peripheral pulses 2+ throughout RATE: regular rate RHYTHM: regular rhythm PERIPHERAL PULSES: Peripheral pulses 2+ throughout Course Vital Signs: Vital signs: Vital Signs Temperature 98.6 F 01/31/24 21:23 Pulse Rate 105 H 01/31/24 21:23 Respiratory Rate 18 01/31/24 21:23 Blood Pressure 119/63 01/31/24 21:23 Pulse Oximetry 100 01/31/24 21:23 Oxygen Delivery Me thod Room Air 01/31/24 21:23 MDM - URI/Sore Throat Medical Decision Making Patient is a 23-year-old female that presents to the emergency department with history of tonsillar stones. Patient underwent strep screen which was negative. She has very large tonsils with apparent stones. Patient I went over management of tonsillar stones and I provided her with contact information for ENT. I have asked case management to assist in referral process. Patient needs to use good oral hygiene, quit smoking/vaping, and gargle frequently. Fortunately her primary nurse has experienced this as well and also offered her some great advise about using a Waterpik. Patient needs to follow-up with ENT. May return to the emergency department for new concerning or worsening symptoms Lab Data Laboratory Results Group A Strep Rapid Negative (Negative) 01/31/24 21:30 No radiology studies performed this visit Discharge Plan Discharge Patient Disposition: Home Clinical Impression: Tonsillolith Condition: Stable Prescriptions: No Action cetirizine 10 mg tablet 10 mg PO DAILY trazodone 50 mg tablet 50 mg PO BEDTIME PRN (Reason: insomnia) Qty: 30 1RF meloxicam 15 mg tablet 15 mg PO DAILY Qty: 30 0RF Benadryl 25 mg Capsule 25 mg PO PRN Proventil HFA 90 mcg/actuation HFA aerosol inhaler 3 inh inhalation Q4H PRN (Reason: shortness of breath or wheezing) Qty: 18 0RF Rx Instructions: until breathing returns to target peak flow/parameters Discharge Orders: Discharge ED (Routine); Ordered 01/31/24 Ordered By: Herbert Oropeza Referrals: Farideh Metz FNP [Primary Care Provider] - Discharge Diet: Advance as tolerated Discharge Activity: Resume usual activity Patient Instructions: Pain Management Activity Restrictions/Additional Instructions: Quit smoking Frequent mouth wash intensive oral hygiene after eating Tonsil stones are small lumps of calcified (hardened) material that form in your tonsils? nooks and crannies. They consist of hardened minerals (like calcium), food debris and?bacteria?or fungi. They?re rarely harmful, but they can cause bad breath, sore throat, earache and other symptoms. The medical term for tonsil stones is ?tonsilloliths.? Tonsil stones look like tiny white or yellow lupe on your?tonsils. You might have one, or you might have several. They?re usually small, but it?s possible to get large ones. You can usually remove tonsil stones at home. Rarely, you might need surgery ? especially if they keep coming back. Coding Level of Care Code ED Aircraft Lay Out Worker for Jonh Jones
[2024-01-31 23:29] VITALS: BP 117/81; PULSE 98; O2SAT 96
== END 2024-01-31 23:32 | disposition home or self-care (01) ==
PROVIDERS: Emergency Medicine; Emergency Provider Nurse Practitioner; PCP Nurse Practitioner Family
DX: J35.8 Other chronic diseases of tonsils and adenoids (principal); Z72.0 Tobacco use
CPT/HCPCS: 87081; 87880; 99283

== ENCOUNTER 2024-02-02 03:49 | Emergency (ER) | payer MEDICAID, SELFPAY ==
[2024-02-02 03:53] VITALS: BP 145/89; PULSE 116; RESP 20; TEMP 37.3; O2SAT 99; BMI 37.8
[2024-02-02 04:03] VITALS: BP 145/89; PULSE 115; RESP 16; O2SAT 99
--- NOTE | 2024-02-02 04:19 | W.ED.URI ---
HPI - URI/Sore Throat General: Chief Complaint: Upper Respiratory Infection Stated Complaint: throat hurts Time Seen by Provider: 02/02/24 04:07 History of Present Illness: This patient is a 23-year-old white female who presents to the ER with a sore throat. Patient states this started 5 days ago. She has been running low-grade fever. Associated symptoms: Reports fever(s) Related Data Home Medications Medication Instructions Recorded Confirmed diphenhydramine HCl 25 mg capsule 25 mg PO PRN 04/25/20 12/25/21 (Benadryl) cetirizine 10 mg tablet 10 mg PO DAILY 11/06/21 12/25/21 Previous Rx's Medication Instructions Recorded albuterol sulfate 90 mcg/actuation 3 inh inhalation Q4H PRN shortness 04/25/20 aerosol inhaler (Proventil HFA) of breath or wheezing #18 grams meloxicam 15 mg tablet 15 mg PO DAILY #30 tabs 12/25/21 trazodone 50 mg tablet 50 mg PO BEDTIME PRN insomnia #30 12/25/21 tabs amoxicillin 500 mg capsule 500 mg PO TID 10 days #30 caps 02/02/24 Allergies Allergy/AdvReac Type Severity Reaction Status Date / Time No Known Allergies Allergy Verified 02/02/24 04:02 Review of Systems General: Reports: 10 or more systems reviewed and unremarkable except in HPI and below Const: Reports: fever(s) ENMT: Reports: throat pain PFSH ED PFSH: Social History Smoking and tobacco/nicotine status: current some day tobacco/nicotine user Female Reproductive History: Date of last menstrual period: 12/26/23 Physical Exam Const: COMMON NORMALS: patient oriented x3 and no limitations GENERAL APPEARANCE: cooperative HENMT: COMMON NORMALS: normocephalic, atraumatic, Normal nasal mucous membranes and turbinates present and moist oral mucous membranes HEAD & SCALP: normal to inspection, normocephalic and atraumatic FACE & SINUS: normal facial exam NOSE: Normal nasal mucous membranes and turbinates present OTHER: Tonsils moderately enlarged bilaterally, erythematous, exudate. Eye: COMMON NORMALS: Equal, round and reactive pupils present, EOMs intact bilaterally and conjunctivae normal GENERAL EYE: appearance normal, both eyes and all related structures CONJUNCTIVA: Yes conjunctivae normal PUPIL: Yes Equal, round and reactive pupils present Neck/C-Spine: COMMON NORMALS: supple and no JVD Chest: COMMONS NORMALS: normal inspection of the chest Resp: COMMON NORMALS: normal respiratory effort and clear to auscultation bilaterally AUSCULTATION: clear to auscultation bilaterally Cardio: COMMON NORMALS: no JVD, regular rate, regular rhythm, No gallops present (Cardio), No murmurs present (Cardio) and No rub (Cardio) RATE: regular rate RHYTHM: regular rhythm GI: COMMON NORMALS: Normal to inspection, nondistended, normoactive bowel sounds present, Soft to palpation and non-tender AUSCULTATION: Yes normoactive bowel sounds PALPATION: Yes Soft to palpation : COMMON NORMALS: Yes no CVA tenderness BLADDER/KIDNEY EXAM: Yes no CVA tenderness Back/Pelvis: COMMON NORMALS: no CVA tenderness and thoracic and lumbar spine normal to inspection Extremity: COMMON NORMALS: normal to inspection Neuro: COMMON NORMALS: patient oriented x3 and CN's II-XII intact bilaterally Psych: COMMON NORMALS: mental status grossly normal, Normal thought process present and cooperative THOUGHT PROCESS: Normal thought process present Skin: COMMON NORMALS: no rashes or lesions noted, turgor normal and no jaundice GENERAL SKIN EXAM: no rashes or lesions noted and turgor normal Course Vital Signs: Vital signs: Vital Signs Temperature 99.1 F 02/02/24 03:53 Pulse Rate 115 H 02/02/24 04:03 Respiratory Rate 16 02/02/24 04:03 Blood Pressure 145/89 02/02/24 04:03 Pulse Oximetry 99 02/02/24 04:03 Oxygen Delivery Me thod Room Air 02/02/24 04:03 MDM - URI/Sore Throat Medical Decision Making Patient was given injection of Toradol and Rocephin in the emergency department. She was placed on amoxicillin. Recommended she take Tylenol and/or ibuprofen for fever, aches and pains. Follow-up with primary care physician in 3 to 5 days if no improvement. She was discharged in stable condition. No radiology studies performed this visit Discharge Plan Discharge Patient Disposition: Home Clinical Impression: Pharyngitis Condition: Stable Prescriptions: New amoxicillin 500 mg capsule 500 mg PO TID 10 Days Qty: 30 0RF No Action cetirizine 10 mg tablet 10 mg PO DAILY trazodone 50 mg tablet 50 mg PO BEDTIME PRN (Reason: insomnia) Qty: 30 1RF meloxicam 15 mg tablet 15 mg PO DAILY Qty: 30 0RF Benadryl 25 mg Capsule 25 mg PO PRN Proventil HFA 90 mcg/actuation HFA aerosol inhaler 3 inh inhalation Q4H PRN (Reason: shortness of breath or wheezing) Qty: 18 0RF Rx Instructions: until breathing returns to target peak flow/parameters Discharge Orders: Discharge ED (Routine); Ordered 02/02/24 Ordered By: Jatin Stephen Referrals: Farideh Metz FNP [Primary Care Provider] - Patient Instructions: Pharyngitis (ED), Pain Management Coding Level of Care Code ED Wildlife Enforcement Major for Jonh Jones
[2024-02-02] MEDS: cefTRIAXone 1,000 MG in water for injection-sterile 2.1 ML 2.1 MG IM (04:31)
[2024-02-02] MEDS: ketorolac 60 mg/2 mL INJ IM (04:33)
[2024-02-02 04:40] VITALS: BP 116/79; PULSE 115; RESP 16; O2SAT 99
== END 2024-02-02 04:46 | disposition home or self-care (01) ==
PROVIDERS: Emergency Provider Emergency Medicine; PCP Nurse Practitioner Family
DX: J02.9 Acute pharyngitis, unspecified (principal); Z72.0 Tobacco use
CPT/HCPCS: 96372; 99284; J0696; J1885

== ENCOUNTER 2024-02-10 20:16 | Emergency (ER) | payer MEDICAID, SELFPAY | END 2024-02-10 20:58 | disposition left against medical advice (07) | LOC: ER 20:21 | PROVIDERS: Emergency Provider Family Medicine; PCP Nurse Practitioner Family | DX: Z53.21 Procedure and treatment not carried out due to patient leaving prior to being seen by health care provider (principal) ==

== ENCOUNTER 2024-03-18 22:43 | Emergency (ER) | payer MEDICAID, SELFPAY ==
[2024-03-18 22:48] VITALS: BP 155/92; PULSE 76; RESP 20; TEMP 36.6; O2SAT 98; BMI 44.8
--- NOTE | 2024-03-18 22:55 | ECG_ITS ---
[employer] [facility] Date: 2024-03-18 Pat Name: Marlena Wells Department: Room: Gender: Female Hand Picker: : [phone] Requested By: Piper Espinoza Order Number: [id number] Emily MD: Radha Ascencio M.D. Measurements Intervals [facility] Rate: 67 P: 19 OK: 148 QRS: 20 QRSD: 88 T: 33 QT: 380 QTc: 403 Interpretive Statements SINUS RHYTHM POSSIBLE RIGHT VENTRICULAR CONDUCTION DELAY [RSR (QR) IN V1/V2] Compared to ECG 08/13/2017 22:40:48 Sinus arrhythmia no longer present Electronically Signed On 03-19-2024 16:55:05 FIREPERSON by Radha Ascencio M.D. [email or web address]
--- NOTE | 2024-03-18 23:12 | XRR_ITS ---
PROCEDURE INFORMATION: Exam: XR Chest Exam date and time: 03/18/2024 11:34 PM Age: 23 years old Clinical indication: Pain; Chest pressure and other: Throat; Prior surgery; Surgery date: Post-operative (0-2 days); Surgery type: Tonsils; Patient HX: Smoker; Additional info: Chest pain TECHNIQUE: Imaging protocol: Radiologic exam of the chest. Views: 1 view. COMPARISON: CT abdomen pelvis w con* [id number] 10/08/2020 3:45 AM FINDINGS: Lungs: See Heart/Mediastinum finding. Pleural spaces: Unremarkable. No pleural effusion. No pneumothorax. Heart/Mediastinum: The heart appears prominent, though accentuated by low lung volumes and portable technique. Bones/joints: Unremarkable. XR/XR chest 1V portable [id number] IMPRESSION: No acute cardiopulmonary findings.
--- NOTE | 2024-03-19 00:12 | W.ED.ANXIETY ---
HPI - Anxiety General: Chief Complaint: Anxiety Stated Complaint: Pain Meds\Chest Pains Time Seen by Provider: 03/18/24 23:18 History of Present Illness: 23-year-old female who had her tonsils out a couple days ago with Dr. Goins. Says tonight she started having some chest discomfort and felt very anxious. Also was having some difficulty with her pain control. However she did take 2 [place]'s and now she says her pain is well-controlled. She says she has some gurgling when she sleeps. She says she feels quite a bit better now but still slightly anxious.. No fever no cough n she did feel somewhat short of breath initially. Related Data Home Medications Medication Instructions Recorded Confirmed diphenhydramine HCl 25 mg capsule 25 mg PO PRN 04/25/20 12/25/21 (Benadryl) cetirizine 10 mg tablet 10 mg PO DAILY 11/06/21 12/25/21 Previous Rx's Medication Instructions Recorded albuterol sulfate 90 mcg/actuation 3 inh inhalation Q4H PRN shortness 04/25/20 aerosol inhaler (Proventil HFA) of breath or wheezing #18 grams meloxicam 15 mg tablet 15 mg PO DAILY #30 tabs 12/25/21 trazodone 50 mg tablet 50 mg PO BEDTIME PRN insomnia #30 12/25/21 tabs Allergies Allergy/AdvReac Type Severity Reaction Status Date / Time No Known Allergies Allergy Verified 02/02/24 04:02 Review of Systems Narrative: Constitutional symptoms: Negative except as documented in HPI. Skin symptoms: Negative except as documented in HPI. Eye symptoms: Negative except as documented in HPI. ENMT symptoms: Negative except as documented in HPI. Respiratory symptoms: Negative except as documented in HPI. Cardiovascular symptoms: Negative except as documented in HPI. Gastrointestinal symptoms: Negative except as documented in HPI. Genitourinary symptoms: Negative except as documented in HPI. Musculoskeletal symptoms: Negative except as documented in HPI. Neurologic symptoms: Negative except as documented in HPI. Psychiatric symptoms: Negative except as documented in HPI. Endocrine symptoms: Negative except as documented in HPI. PFSH ED PFSH: Social History Smoking and tobacco/nicotine status: current some day tobacco/nicotine user Physical Exam Narrative: EXAM NARRATIVE: General: Alert, no acute distress. Skin: Warm, dry. Head: Normocephalic, atraumatic. Neck: Supple, trachea midline. Eye: Extraocular movements are intact. Ears, nose, mouth and throat: mucosa moist. Pharyngeal postsurgical changes. Cardiovascular: Regular, Normal peripheral perfusion. Respiratory: Lungs are clear to auscultation, respirations are non-labored, breath sounds are equal, Symmetrical chest wall expansion. Gastrointestinal: Soft, Nontender, Non distended Musculoskeletal: Normal ROM, no deformity. Neurological: Alert and oriented, No focal neurological deficit observed. Psychiatric: Cooperative, appropriate mood & affect. Course Vital Signs: Vital signs: Vital Signs Temperature 98 F 03/18/24 22:48 Pulse Rate 76 03/18/24 22:48 Respiratory Rate 20 H 03/18/24 22:48 Blood Pressure 155/92 03/18/24 22:48 Pulse Oximetry 98 03/18/24 22:48 MDM - Anxiety Medical Decision Making Chest x-ray: No acute process. No infiltrate. No pneumothorax. This was reviewed and interpreted by myself the emergency room physician. I also reviewed the radiology report. EKG: Time 2255. Rate 67 normal sinus rhythm, No ST-T changes, no ectopy, normal OH & QRS intervals, This was reviewed and interpreted by myself the ER physician at 2256 Assessment and plan: Anxiety Postsurgical pain - Discharged home - Discussed plan with patient. Answered any questions. - Evaluation and treatment of this problem were appropriate in the emergency setting. Lab Data Radiology Impressions Chest X-Ray 03/18/24 23:12 IMPRESSION: No acute cardiopulmonary findings. All radiology interpretation(s) finalized by discharge Discharge Plan Discharge Patient Disposition: Home Clinical Impression: Acute anxiety Condition: Stable Prescriptions: No Action cetirizine 10 mg tablet 10 mg PO DAILY trazodone 50 mg tablet 50 mg PO BEDTIME PRN (Reason: insomnia) Qty: 30 1RF meloxicam 15 mg tablet 15 mg PO DAILY Qty: 30 0RF Benadryl 25 mg Capsule 25 mg PO PRN Proventil HFA 90 mcg/actuation HFA aerosol inhaler 3 inh inhalation Q4H PRN (Reason: shortness of breath or wheezing) Qty: 18 0RF Rx Instructions: until breathing returns to target peak flow/parameters Discharge Orders: Discharge ED (Routine); Ordered 03/19/24 Ordered By: Piper Thompson Referrals: Farideh Metz FNP [Primary Care Provider] - Discharge Diet: Advance as tolerated Discharge Activity: Increase activity as tolerated Patient Instructions: Opioid Safety, Pain Management Activity Restrictions/Additional Instructions: Please call Dr. Mckeon's office tomorrow for recommendations on postsurgical management. Thank you for choosing [facility] for your healthcare needs today. Please realize this is an emergency room and that we are providing you with a medical screening exam and this may not be complete and all inclusive of all the testing and or work up that you may need to determine your ailment or severity of your illness. You have been screened and evaluated and felt safe for discharge. Health conditions do change or evolve sometimes and as such it is important that you follow up with your Primary Doctor to be re checked, 3-5 days is a general good time frame for follow up. You are always welcome to return to the ED for re assessment if your symptoms are worsening or you have new concerns Coding Level of Care Code ED Gas Appliance Repairer for Jonh Jones
[2024-03-19 00:23] VITALS: BP 132/76; PULSE 87; RESP 17; O2SAT 98
== END 2024-03-19 00:23 | disposition home or self-care (01) ==
PROVIDERS: Emergency Provider Emergency Medicine; PCP Nurse Practitioner Family
DX: F41.8 Other specified anxiety disorders (principal); Z72.0 Tobacco use
CPT/HCPCS: 71045; 93005; 99284

== ENCOUNTER 2024-04-28 03:20 | Emergency (ER) | payer MEDICAID, SELFPAY ==
[2024-04-28 03:24] VITALS: BP 130/80; PULSE 68; RESP 18; TEMP 36.4; O2SAT 100; BMI 37.0
[2024-04-28 03:27] VITALS: BP 130/80; PULSE 68; O2SAT 100
--- NOTE | 2024-04-28 03:30 | ED_ITS ---
HPI - Dental/Oral General: Chief complaint: Dental/Oral Stated complaint: Tooth Ache Time Seen by Provider: 04/28/24 03:27 History of Present Illness: Patient presents to the ER with right upper canine tooth pain. This began 2 days ago. She has not seen a dentist or PCP. It is radiating pain up into her right cheek and started to go down into her throat. She has no difficulty swallowing or breathing. Related Data Home Medications Medication Instructions Recorded Confirmed diphenhydramine HCl 25 mg capsule 25 mg PO PRN 04/25/20 12/25/21 (Benadryl) cetirizine 10 mg tablet 10 mg PO DAILY 11/06/21 12/25/21 Previous Rx's Medication Instructions Recorded albuterol sulfate 90 mcg/actuation 3 inh inhalation Q4H PRN shortness 04/25/20 aerosol inhaler (Proventil HFA) of breath or wheezing #18 grams meloxicam 15 mg tablet 15 mg PO DAILY #30 tabs 12/25/21 trazodone 50 mg tablet 50 mg PO BEDTIME PRN insomnia #30 12/25/21 tabs amoxicillin 500 mg capsule 500 mg PO Q8H #30 caps 04/28/24 Allergies Allergy/AdvReac Type Severity Reaction Status Date / Time No Known Allergies Allergy Verified 04/28/24 03:27 Review of Systems General: Reports: 10 or more systems reviewed and unremarkable except in HPI and below PFSH ED PFSH: Social History Smoking and tobacco/nicotine status: current some day tobacco/nicotine user Female Reproductive History: Date of last menstrual period: 03/18/24 Physical Exam Const: COMMON NORMALS: no acute distress, average body habitus, patient oriented x3, no limitations, healthy appearing, alert and well nourished HENMT: COMMON NORMALS: normocephalic, atraumatic, hearing grossly normal bilaterally, external ears normal, Normal external nose present and moist oral mucous membranes; dentition not normal (Dental carry right upper canine) HEAD & SCALP: normocephalic and atraumatic NOSE: Normal external nose present EXTERNAL EAR: Yes external ears normal Neck/C-Spine: COMMON NORMALS: full ROM, no lymphadenopathy, supple, no meningeal signs, no JVD and Thyroid normal THYROID: Thyroid normal Chest: COMMONS NORMALS: normal inspection of the chest and normal palpation of entire chest wall Resp: COMMON NORMALS: normal respiratory effort, No retractions, No use of accessory muscles and clear to auscultation bilaterally AUSCULTATION: clear to auscultation bilaterally Cardio: COMMON NORMALS: no JVD, regular rate, regular rhythm, S1 normal heart sound present, S2 normal heart sound present, No gallops present (Cardio), No clicks present (Cardio), No murmurs present (Cardio) and No rub (Cardio) RATE: regular rate RHYTHM: regular rhythm HEART SOUNDS: S1 normal heart sound present and S2 normal heart sound present Neuro: COMMON NORMALS: patient oriented x3 SENSORIUM/ORIENTATION: Yes alert MENINGEAL SIGNS: Yes no meningeal signs Course Vital Signs: Vital signs: Vital Signs Temperature 97.6 F 04/28/24 03:24 Pulse Rate 68 04/28/24 03:24 Respiratory Rate 18 04/28/24 03:24 Blood Pressure 130/80 04/28/24 03:24 Pulse Oximetry 100 04/28/24 03:24 Oxygen Delivery Me thod Room Air 04/28/24 03:24 [facility] - Dental/Oral Medical Decision Making Will give the patient amoxicillin and Toradol here and send her home with a prescription for amoxicillin. Medical Records I reviewed the patient's medical records. Lab Data I reviewed the patient's lab results. No radiology studies performed this visit Discharge Plan Discharge Patient Disposition: Home Clinical Impression: Toothache Condition: Stable Prescriptions: New amoxicillin 500 mg capsule 500 mg PO Q8H Qty: 30 0RF No Action cetirizine 10 mg tablet 10 mg PO DAILY trazodone 50 mg tablet 50 mg PO BEDTIME PRN (Reason: insomnia) Qty: 30 1RF meloxicam 15 mg tablet 15 mg PO DAILY Qty: 30 0RF Benadryl 25 mg Capsule 25 mg PO PRN Proventil HFA 90 mcg/actuation HFA aerosol inhaler 3 inh inhalation Q4H PRN (Reason: shortness of breath or wheezing) Qty: 18 0RF Rx Instructions: until breathing returns to target peak flow/parameters Discharge Orders: Discharge ED (Routine); Ordered 04/28/24 Ordered By: Chidi Bermudez Referrals: Farideh Metz FNP [Primary Care Provider] - 1 week Patient Instructions: Toothache (ED) Activity Restrictions/Additional Instructions: Please take all your antibiotics as directed. Please follow-up with a dentist for definitive treatment. Coding Level of Care Code ED Duct Maker for Jonh Jones
[2024-04-28] MEDS: amoxicillin 500 mg Capsule PO (03:47)
[2024-04-28] MEDS: ketorolac 10 mg Tablet PO (03:47)
[2024-04-28 03:49] VITALS: BP 125/92; PULSE 76; O2SAT 100
== END 2024-04-28 03:51 | disposition home or self-care (01) ==
PROVIDERS: Emergency Provider Emergency Medicine; PCP Nurse Practitioner Family
DX: K08.89 Other specified disorders of teeth and supporting structures (principal); Z72.0 Tobacco use
CPT/HCPCS: 99283

== ENCOUNTER 2024-05-03 23:32 | Emergency (ER) | payer MEDICAID, SELFPAY ==
[2024-05-03 23:35] VITALS: BP 148/94; PULSE 70; RESP 14; TEMP 36.6; O2SAT 100
[2024-05-03 23:39] VITALS: BP 148/94; PULSE 70; RESP 14; O2SAT 100
--- NOTE | 2024-05-03 23:50 | W.ED.DENTAL ---
HPI - Dental/Oral General: Chief complaint: Dental/Oral Stated complaint: dental pain antibiotic making sick Time Seen by Provider: 05/03/24 23:39 Source: patient Mode of arrival: ambulatory Limitations: no limitations History of Present Illness: Patient is a 23-year-old female who presents emergency department complaining of dental pain. She was seen here few days ago, was started on amoxicillin and states that this has been making her feel sick. Also still reporting tooth pain, took an old hydrocodone before coming in and this did not touch her pain. No trouble breathing, inability to handle secretions, fevers, or other symptoms. She states the amoxicillin made her feel nauseous and vomit a few times, no known history of allergies with this. Has been unable to get into a dentist, she states that no more will take her insurance. States the pain is still to the right upper dentition and radiates up her right face towards her ear. MD Complaint: tooth pain Onset (ago): day(s) Duration: constant Severity: severe Associated symptoms: Denies ear or mastoid pain, fever(s) or odynophagia Treatment prior to arrival: oral analgesic and other (Antibiotics) Related Data Home Medications Medication Instructions Recorded Confirmed diphenhydramine HCl 25 mg capsule 25 mg PO PRN 04/25/20 12/25/21 (Benadryl) cetirizine 10 mg tablet 10 mg PO DAILY 11/06/21 12/25/21 Previous Rx's Medication Instructions Recorded albuterol sulfate 90 mcg/actuation 3 inh inhalation Q4H PRN shortness 04/25/20 aerosol inhaler (Proventil HFA) of breath or wheezing #18 grams meloxicam 15 mg tablet 15 mg PO DAILY #30 tabs 12/25/21 trazodone 50 mg tablet 50 mg PO BEDTIME PRN insomnia #30 12/25/21 tabs clindamycin HCl 300 mg capsule 300 mg PO BID 10 days #20 caps 05/03/24 Allergies Allergy/AdvReac Type Severity Reaction Status Date / Time No Known Allergies Allergy Verified 05/03/24 23:39 Review of Systems General: Reports: 10 or more systems reviewed and unremarkable except in HPI and below Const: Denies: fever(s), chills or fatigue Eyes: Denies: change in vision ENMT: Reports: dental pain and sinus pain; Denies: throat pain, uvular edema, odynophagia, swelling of lips/tongue, ear or mastoid pain or nasal discharge Card: Denies: chest pain, palpitations, swelling of feet/ankles or lightheadedness Resp: Denies: dyspnea, productive cough or wheezing GI: Reports: nausea and vomiting; Denies: abdominal pain, diarrhea or constipation Musc: Denies: neck pain, back pain or joint pain Skin/Breast: Denies: rash Neuro: Denies: headache(s) PFSH ED PFSH: Social History Smoking and tobacco/nicotine status: current some day tobacco/nicotine user Female Reproductive History: Date of last menstrual period: 03/18/24 Physical Exam Const: COMMON NORMALS: no acute distress and no limitations GENERAL APPEARANCE: cooperative, comfortable and well developed ORIENTATION/CONSCIOUSNESS: Yes awake OTHER: Nontoxic-appearing, normal vitals HENMT: COMMON NORMALS: normocephalic, atraumatic and hearing grossly normal bilaterally HEAD & SCALP: normocephalic and atraumatic THROAT: posterior oropharynx normal, tonsils normal and uvula midline; no uvular edema OTHER: Fair dentition, no caries or tooth fracture. There is reproducible tenderness to palpation to the right maxillary region, no obvious swelling. Eye: COMMON NORMALS: Equal, round and reactive pupils present, EOMs intact bilaterally and conjunctivae normal CONJUNCTIVA: Yes conjunctivae normal PUPIL: Yes Equal, round and reactive pupils present Neck/C-Spine: COMMON NORMALS: full ROM, supple and no JVD Resp: COMMON NORMALS: normal respiratory effort, No retractions, No use of accessory muscles and clear to auscultation bilaterally AUSCULTATION: clear to auscultation bilaterally Cardio: COMMON NORMALS: no JVD, regular rate, regular rhythm, No clicks present (Cardio), No murmurs present (Cardio) and No rub (Cardio) RATE: regular rate RHYTHM: regular rhythm Extremity: COMMON NORMALS: normal to inspection, full ROM and capillary refill normal Skin: COMMON NORMALS: no rashes or lesions noted GENERAL SKIN EXAM: no rashes or lesions noted Course Vital Signs: Vital signs: Vital Signs Temperature 97.9 F 05/03/24 23:35 Pulse Rate 70 05/03/24 23:35 Respiratory Rate 14 05/03/24 23:35 Blood Pressure 148/94 05/03/24 23:35 Pulse Oximetry 100 05/03/24 23:35 Oxygen Delivery Me thod Room Air 05/03/24 23:35 MDM - Dental/Oral Medical Decision Making Patient presents for the second time recently for continued toothache. Her exam unremarkable, I do not see any signs of infection. Stop amoxicillin, at her request we will continue on a different antibiotic, however I do think she needs to see a dentist for imaging and potential extraction of any affected teeth. Likely did have a reaction to amoxicillin. I have no concern for any systemic illness or anaphylaxis, will treat her pain here with Dilaudid as well as topical lidocaine, return precautions given such as if she starts having trouble breathing or difficulty swallowing. No radiology studies performed this visit Discharge Plan Discharge Patient Disposition: Home Clinical Impression: Toothache Condition: Stable Prescriptions: New clindamycin HCl 300 mg capsule 300 mg PO BID 10 Days Qty: 20 0RF Discontinued amoxicillin 500 mg capsule 500 mg PO Q8H Qty: 30 0RF No Action cetirizine 10 mg tablet 10 mg PO DAILY trazodone 50 mg tablet 50 mg PO BEDTIME PRN (Reason: insomnia) Qty: 30 1RF meloxicam 15 mg tablet 15 mg PO DAILY Qty: 30 0RF Benadryl 25 mg Capsule 25 mg PO PRN Proventil HFA 90 mcg/actuation HFA aerosol inhaler 3 inh inhalation Q4H PRN (Reason: shortness of breath or wheezing) Qty: 18 0RF Rx Instructions: until breathing returns to target peak flow/parameters Discharge Orders: Discharge ED (Routine); Ordered 05/03/24 Ordered By: Trav Cline Referrals: Farideh Metz FNP [Primary Care Provider] - Activity Restrictions/Additional Instructions: Please follow-up with dentist, use provided resource list. Stop taking amoxicillin. Begin taking clindamycin as prescribed. Return with any trouble breathing, inability to handle/swallow secretions, or other concerning symptoms. Coding Level of Care Code ED Soil Conservation Technician for Jonh Jones
[2024-05-03] MEDS: dexamethasone 10 mg/mL INJ IM (23:55)
[2024-05-04] MEDS: lidocaine 2% viscous 15 mL UDC 10 ML MUCOUS MEM (00:02)
[2024-05-04 00:07] VITALS: BP 139/81; PULSE 83; O2SAT 100
== END 2024-05-04 00:09 | disposition home or self-care (01) ==
PROVIDERS: Emergency Provider Physician Assistant; PCP Nurse Practitioner Family
DX: K08.89 Other specified disorders of teeth and supporting structures (principal); Z72.0 Tobacco use
CPT/HCPCS: 99284; J1100

== ENCOUNTER 2024-06-30 07:30 | Emergency (ER) | payer MEDICAID, SELFPAY ==
[2024-06-30 07:42] VITALS: BP 152/86; PULSE 69; RESP 18; TEMP 36.4; O2SAT 98; BMI 41.1
[2024-06-30 07:51] VITALS: O2SAT 98
--- NOTE | 2024-06-30 08:09 | W.ED.DENTAL ---
HPI - Dental/Oral General: Chief complaint: Dental/Oral Stated complaint: rt side dental pain Time Seen by Provider: 06/30/24 07:31 History of Present Illness: 23-year-old female presents emergency room with a right maxillary premolar is tender mildly swollen along the gumline. She has had problems with twos for some time she is post have root canal but got delayed. She not had any fever sweats or chills. Associated symptoms: Denies fever(s) Related Data Previous Rx's ?Medication ?Instructions ?Recorded amoxicillin 875 mg-potassium 1 tab PO BID #20 tabs 06/30/24 clavulanate 125 mg tablet hydrocodone 5 mg-acetaminophen 325 1 tab PO Q6H PRN pain #10 tabs 06/30/24 mg tablet Allergies Allergy/AdvReac Type Severity Reaction Status Date / Time No Known Allergies Allergy Verified 05/03/24 23:39 Review of Systems Const: Denies: fever(s) or chills Card: Denies: chest pain Resp: Denies: dyspnea GI: Denies: abdominal pain : Denies: dysuria, urinary frequency or urinary urgency Musc: Denies: neck pain or back pain Skin/Breast: Denies: rash PFSH ED PFSH: Social History Smoking and tobacco/nicotine status: current some day tobacco/nicotine user Physical Exam Const: COMMON NORMALS: no acute distress GENERAL APPEARANCE: cooperative and comfortable ORIENTATION/CONSCIOUSNESS: Yes awake, Yes oriented to person, Yes oriented to place and Yes oriented to time HENMT: COMMON NORMALS: normocephalic, atraumatic and hearing grossly normal bilaterally HEAD & SCALP: normocephalic and atraumatic Resp: COMMON NORMALS: normal respiratory effort, No retractions, No use of accessory muscles and clear to auscultation bilaterally AUSCULTATION: clear to auscultation bilaterally Cardio: COMMON NORMALS: regular rate, regular rhythm and No murmurs present (Cardio) RATE: regular rate RHYTHM: regular rhythm GI: COMMON NORMALS: Soft to palpation and No hepatosplenomegaly present AUSCULTATION: Yes normoactive bowel sounds PALPATION: Yes Soft to palpation, No Tenderness to palpation present (GI), No Guarding due to palpation present (GI) and Yes No hepatosplenomegaly present Extremity: COMMON NORMALS: normal to inspection, capillary refill normal, no clubbing, cyanosis or edema, no calf tenderness and no pedal edema Neuro: SENSORIUM/ORIENTATION: Yes oriented to person, Yes oriented to place and Yes oriented to time Skin: COMMON NORMALS: no rashes or lesions noted GENERAL SKIN EXAM: no rashes or lesions noted Course Vital Signs: Vital signs: Vital Signs Temperature 97.6 F 06/30/24 07:42 Pulse Rate 75 06/30/24 08:48 Respiratory Rate 18 06/30/24 07:42 Blood Pressure 151/86 06/30/24 08:48 Pulse Oximetry 98 06/30/24 08:48 Oxygen Delivery Me thod Room Air 06/30/24 07:51 MDM - Dental/Oral Medical Decision Making Started on oral antibiotics Augmentin twice daily for 10 days pain medications given. Discussed patient importance of following up with definitive care with dentistry. No radiology studies performed this visit Discharge Plan Discharge Patient Disposition: Home Clinical Impression: Dental caries Condition: Stable Prescriptions: New hydrocodone-acetaminophen 5-325 mg tablet 1 tab PO Q6H PRN (Reason: pain) Qty: 10 0RF amoxicillin-pot clavulanate 875-125 mg tablet 1 tab PO BID Qty: 20 0RF Discharge Orders: Discharge ED (Routine); Ordered 06/30/24 Ordered By: Tyree Boewrs Referrals: Farideh Metz FNP [Primary Care Provider] - Discharge Diet: Usual diet Discharge Activity: Resume usual activity Patient Instructions: Opioid Safety, Pain Management Activity Restrictions/Additional Instructions: Thank you for choosing [facility] for your healthcare needs today. It is very important that you follow up as instructed or that you return to the Emergency Department should you have concerns or if your condition changes or worsens in any way. You are seen in the emergency room with complaint of tooth pain and infection. Recommend you start on oral antibiotics 1 pill twice a day for 10 days. You are also given pain medications to use as needed. Very important for you to follow-up with a dentist for definitive care. The medicines given here will help decrease symptoms and work as a stopgap to prevent worsening but will not be curative of the problem. Print Language: Iranian Coding Level of Care Code ED Railroad Firer for Jonh Jones
[2024-06-30 08:48] VITALS: BP 151/86; PULSE 75; O2SAT 98
== END 2024-06-30 08:48 | disposition home or self-care (01) ==
PROVIDERS: Emergency Provider Family Medicine; PCP Nurse Practitioner Family
DX: K02.9 Dental caries, unspecified (principal); Z72.0 Tobacco use
CPT/HCPCS: 99283

== ENCOUNTER 2024-07-21 18:03 | Emergency (ER) | payer MEDICAID, SELFPAY ==
[2024-07-21 18:36] VITALS: BP 145/93; PULSE 98; RESP 17; TEMP 36.8; O2SAT 100; BMI 46.5
[2024-07-21] MEDS: HYDROcodone-acetaminophen 5-325 mg Tablet 1 TAB PO (18:52)
--- NOTE | 2024-07-21 18:52 | W.ED.SKABFB ---
HPI - Skin/Abscess/Foreign Bdy General: Chief complaint: Skin/Abscess/Foreign Body Stated complaint: right side face swelling Time Seen by Provider: 07/21/24 18:44 Source: patient Mode of arrival: ambulatory Limitations: no limitations History of Present Illness: 23-year-old female states she had popped a pimple on her right nostril yesterday has been having swelling to her upper lip and pain. States that pain sharp in nature rates it a 8 out of 10 denies any difficulty opening her mouth denies any fevers Associated symptoms: Deny chills, fever(s), nausea or vomiting Related Data Previous Rx's ?Medication ?Instructions ?Recorded amoxicillin 875 mg-potassium 1 tab PO BID #20 tabs 06/30/24 clavulanate 125 mg tablet hydrocodone 5 mg-acetaminophen 325 1 tab PO Q6H PRN pain #10 tabs 06/30/24 mg tablet sulfamethoxazole 800 1 tab PO BID 10 days #20 tabs 07/21/24 mg-trimethoprim 160 mg tablet (Bactrim DS) Allergies Allergy/AdvReac Type Severity Reaction Status Date / Time amoxicillin Allergy ADR-Chest Verified 07/21/24 18:42 Pain Review of Systems Const: Denies: fever(s), chills, body aches or change in appetite ENMT: Denies: throat pain or dental pain Card: Denies: chest pain Resp: Denies: dyspnea GI: Denies: abdominal pain, nausea, vomiting or diarrhea Musc: Denies: neck pain or back pain Skin/Breast: Denies: rash Neuro: Denies: headache(s) PFS ED PFSH: Social History Smoking and tobacco/nicotine status: current some day tobacco/nicotine user Physical Exam Const: COMMON NORMALS: no acute distress, patient oriented x3 and healthy appearing HENMT: COMMON NORMALS: normocephalic and atraumatic HEAD & SCALP: normocephalic and atraumatic OTHER: Likely abscess noted to right upper lip not involving any of the vermilion part of the lip. Eye: COMMON NORMALS: Equal, round and reactive pupils present and EOMs intact bilaterally PUPIL: Yes Equal, round and reactive pupils present Neck/C-Spine: COMMON NORMALS: full ROM and supple Chest: COMMONS NORMALS: normal inspection of the chest Resp: COMMON NORMALS: normal respiratory effort Cardio: COMMON NORMALS: regular rate RATE: regular rate Extremity: COMMON NORMALS: normal to inspection and full ROM Neuro: COMMON NORMALS: patient oriented x3, moves all extremities and no focal motor deficits Psych: COMMON NORMALS: mental status grossly normal, Normal thought process present and cooperative THOUGHT PROCESS: Normal thought process present Skin: COMMON NORMALS: no rashes or lesions noted and no wounds GENERAL SKIN EXAM: no rashes or lesions noted Course Vital Signs: Vital signs: Vital Signs Temperature 98.2 F 07/21/24 18:36 Pulse Rate 84 07/21/24 18:58 Respiratory Rate 17 07/21/24 18:36 Blood Pressure 125/100 07/21/24 18:58 Pulse Oximetry 96 07/21/24 18:58 Oxygen Delivery Me thod Room Air 07/21/24 18:36 MDM - Skin/Abscess/Foreign Bdy Medicial Decision Making Patient presents with likely abscess to her upper lip did not try to incise abscess but she refused she states she does not want incised at this time she is doing warm compresses will start on Bactrim she is return if worsening. Medical Records I reviewed the patient's medical records. No radiology studies performed this visit Discharge Plan Discharge Patient Disposition: Home Clinical Impression: Abscess Condition: Stable Prescriptions: New sulfamethoxazole-trimethoprim [Bactrim DS] 800-160 mg tablet 1 tab PO BID 10 Days Qty: 20 0RF No Action hydrocodone-acetaminophen 5-325 mg tablet 1 tab PO Q6H PRN (Reason: pain) Qty: 10 0RF amoxicillin-pot clavulanate 875-125 mg tablet 1 tab PO BID Qty: 20 0RF Discharge Orders: Discharge ED (Routine); Ordered 07/21/24 Ordered By: Janki Sheikh Referrals: Farideh Metz FNP [Primary Care Provider] - 4-7 days Discharge Diet: Advance as tolerated Discharge Activity: Resume usual activity Patient Instructions: Abscess (ED) Print Language: Macedonian Coding Level of Care Code ED Feather Drying Machine Operator for Jonh Jones
[2024-07-21] MEDS: sulfamethoxazole-trimeth DS 160-800 mg Tablet 1 TAB PO (18:53)
[2024-07-21 18:58] VITALS: BP 125/100; PULSE 84; O2SAT 96
== END 2024-07-21 19:01 | disposition home or self-care (01) ==
PROVIDERS: Emergency Provider Emergency Medicine; PCP Nurse Practitioner Family
DX: K13.0 Diseases of lips (principal); Z72.0 Tobacco use
CPT/HCPCS: 99283; J9999

== ENCOUNTER 2024-07-21 23:31 | Emergency (ER) | payer MEDICAID, SELFPAY ==
[2024-07-21 23:33] VITALS: BP 210/146; PULSE 123; RESP 18; TEMP 37.6; O2SAT 99; BMI 46.5
--- NOTE | 2024-07-22 00:20 | W.ED.GENADLT ---
HPI - General Adult General: Chief complaint: General Medical Stated complaint: facial swelling worse cant see out of eye Time Seen by Provider: 07/22/24 00:05 History of Present Illness: P presents back to the ER for the second time today for facial swelling, patient was diagnosed with a abscess on her right upper lip/facial region. Patient was given Bactrim hydrocodone 5 mg, and discharged with prescription for Bactrim. She did not get the Bactrim filled. Patient says the swelling is worse and the pain is worse and she is unable to tolerate it. Patient is very hysterical and dramatic. Related Data Previous Rx's ?Medication ?Instructions ?Recorded amoxicillin 875 mg-potassium 1 tab PO BID #20 tabs 06/30/24 clavulanate 125 mg tablet hydrocodone 5 mg-acetaminophen 325 1 tab PO Q6H PRN pain #10 tabs 06/30/24 mg tablet sulfamethoxazole 800 1 tab PO BID 10 days #20 tabs 07/21/24 mg-trimethoprim 160 mg tablet (Bactrim DS) Allergies Allergy/AdvReac Type Severity Reaction Status Date / Time amoxicillin Allergy ADR-Chest Verified 07/21/24 23:37 Pain Review of Systems General: Reports: 10 or more systems reviewed and unremarkable except in HPI and below PFSH ED PFSH: Social History Smoking and tobacco/nicotine status: current some day tobacco/nicotine user Physical Exam Const: COMMON NORMALS: no acute distress, average body habitus, patient oriented x3, no limitations, healthy appearing, alert and well nourished HENMT: COMMON NORMALS: normocephalic, atraumatic, hearing grossly normal bilaterally, external ears normal, Normal external nose present, moist oral mucous membranes and oropharynx normal HEAD & SCALP: normocephalic and atraumatic NOSE: Normal external nose present EXTERNAL EAR: Yes external ears normal OTHER: Likely abscess noted to right upper lip not involving any of the vermilion part of the lip. Eye: COMMON NORMALS: Equal, round and reactive pupils present, EOMs intact bilaterally, conjunctivae normal and no scleral icterus CONJUNCTIVA: Yes conjunctivae normal PUPIL: Yes Equal, round and reactive pupils present Neck/C-Spine: COMMON NORMALS: full ROM, no lymphadenopathy, supple, no meningeal signs and no JVD Chest: COMMONS NORMALS: normal inspection of the chest and normal palpation of entire chest wall Resp: COMMON NORMALS: normal respiratory effort, No retractions, No use of accessory muscles and clear to auscultation bilaterally AUSCULTATION: clear to auscultation bilaterally Cardio: COMMON NORMALS: no JVD, regular rate, regular rhythm, S1 normal heart sound present, S2 normal heart sound present, No gallops present (Cardio), No clicks present (Cardio), No murmurs present (Cardio) and No rub (Cardio) RATE: regular rate RHYTHM: regular rhythm HEART SOUNDS: S1 normal heart sound present and S2 normal heart sound present Neuro: COMMON NORMALS: patient oriented x3 SENSORIUM/ORIENTATION: Yes alert MENINGEAL SIGNS: Yes no meningeal signs Course Vital Signs: Vital signs: Vital Signs Temperature 99.7 F H 07/21/24 23:33 Pulse Rate 123 H 07/21/24 23:33 Respiratory Rate 18 07/21/24 23:33 Blood Pressure 210/146 07/21/24 23:33 Pulse Oximetry 99 07/21/24 23:33 MDM - General Adult Medical Decision Making Patient was given [place] 5, prednisone 40, and will be discharged and was instructed to get her prescription for Bactrim filled tomorrow.Patient presents with likely abscess to her upper lip did not try to incise abscess but she refused she states she does not want incised at this time she is doing warm compresses will start on Bactrim she is return if worsening. Medical Records I reviewed the patient's medical records. Lab Data I reviewed the patient's lab results. No radiology studies performed this visit Discharge Plan Discharge Patient Disposition: Home Clinical Impression: Abscess Condition: Stable Prescriptions: No Action hydrocodone-acetaminophen 5-325 mg tablet 1 tab PO Q6H PRN (Reason: pain) Qty: 10 0RF amoxicillin-pot clavulanate 875-125 mg tablet 1 tab PO BID Qty: 20 0RF sulfamethoxazole-trimethoprim [Bactrim DS] 800-160 mg tablet 1 tab PO BID 10 Days Qty: 20 0RF Discharge Orders: Discharge ED (Routine); Ordered 07/22/24 Ordered By: Chidi Bermudez Referrals: Farideh Metz FNP [Primary Care Provider] - Patient Instructions: Opioid Safety, Pain Management Activity Restrictions/Additional Instructions: Thank you for choosing [facility] for your healthcare needs today. Please realize that you were seen in the emergency department and that we are providing you with an emergency medical screening exam and this may not be a complete and all exclusive of all testing and/or medical workup we may need to determine your element or severity of your illness. It is very important that you follow-up as instructed with your primary care provider or specialist for the additional evaluation and to discuss your medical treatment plan. You may return to the emergency department should you have concerns or if your condition changes or worsens in any way. Print Language: Argentine Coding Level of Care Code ED Rigging Loft Mechanic for Jonh Jones
[2024-07-22] MEDS: HYDROcodone-acetaminophen 5-325 mg Tablet 1 TAB PO (00:29)
[2024-07-22] MEDS: predniSONE 20 mg Tablet 40 MG PO (00:29)
[2024-07-22 00:47] VITALS: PULSE 82; RESP 16; O2SAT 100
== END 2024-07-22 00:49 | disposition home or self-care (01) ==
PROVIDERS: Emergency Provider Emergency Medicine; PCP Nurse Practitioner Family
DX: K13.0 Diseases of lips (principal); Z72.0 Tobacco use
CPT/HCPCS: 99283; J7512; J9999

== ENCOUNTER 2024-09-13 14:11 | Emergency (ER) | payer SELFPAY ==
[2024-09-13 14:13] VITALS: BP 114/72; PULSE 92; RESP 16; TEMP 36.9; O2SAT 98; BMI 44.6
--- NOTE | 2024-09-13 14:18 | ED_ITS ---
HPI - General Adult General: Chief complaint: Weakness Stated complaint: over heated Time Seen by Provider: 09/13/24 14:12 Source: patient and EMS Mode of arrival: EMS Limitations: no limitations History of Present Illness: She states she has felt nauseous 23-year-old female [place] states she feels like she has had some heat exhaustion states she has felt weak and tired today. She has been able to drink water denies any vomiting denies any pain anywhere. Associated symptoms: Reports nausea; Deny chest pain, dyspnea, headache(s), rash or vomiting Related Data Previous Rx's ?Medication ?Instructions ?Recorded ondansetron 4 mg disintegrating 4 mg PO Q6H PRN nausea and 09/13/24 tablet vomiting #14 tabs Allergies Allergy/AdvReac Type Severity Reaction Status Date / Time amoxicillin Allergy ADR-Chest Verified 09/13/24 14:18 Pain Review of Systems Const: Reports: fatigue; Denies: fever(s), chills, body aches or change in appetite Eyes: Denies: blurry vision or eye discomfort ENMT: Denies: throat pain or dental pain Card: Denies: chest pain Resp: Denies: dyspnea GI: Reports: nausea; Denies: abdominal pain, vomiting or diarrhea Musc: Denies: neck pain or back pain Skin/Breast: Denies: rash Neuro: Denies: headache(s) PFS ED PFSH: Social History Smoking and tobacco/nicotine status: current some day tobacco/nicotine user Physical Exam Const: COMMON NORMALS: no acute distress, patient oriented x3 and healthy appearing HENMT: COMMON NORMALS: normocephalic and atraumatic HEAD & SCALP: normocephalic and atraumatic Eye: COMMON NORMALS: conjunctivae normal CONJUNCTIVA: Yes conjunctivae normal Neck/C-Spine: COMMON NORMALS: full ROM and supple Chest: COMMONS NORMALS: normal inspection of the chest Resp: COMMON NORMALS: normal respiratory effort Cardio: COMMON NORMALS: regular rate, regular rhythm and No murmurs present (Cardio) RATE: regular rate RHYTHM: regular rhythm Extremity: COMMON NORMALS: normal to inspection and full ROM Neuro: COMMON NORMALS: patient oriented x3, moves all extremities and no focal motor deficits Psych: COMMON NORMALS: mental status grossly normal, Normal thought process present and cooperative THOUGHT PROCESS: Normal thought process present Skin: COMMON NORMALS: no rashes or lesions noted and no wounds GENERAL SKIN EXAM: no rashes or lesions noted Course Vital Signs: Vital signs: Vital Signs Temperature 98.4 F 09/13/24 14:13 Pulse Rate 78 09/13/24 14:27 Respiratory Rate 16 09/13/24 14:13 Blood Pressure 114/72 09/13/24 14:27 Pulse Oximetry 100 09/13/24 14:27 Oxygen Delivery Me thod Room Air 09/13/24 14:27 MDM - General Adult Medical Decision Making Patient presents here with heat exposure she refused blood work and IVs she feels much improved after Zofran and oral rehydration she stable for discharge follow-up PCP return if worsening. Medical Records I reviewed the patient's medical records. No radiology studies performed this visit Discharge Plan Discharge Patient Disposition: Home Clinical Impression: Heat exposure Condition: Stable Prescriptions: New ondansetron 4 mg tablet,disintegrating 4 mg PO Q6H PRN (Reason: nausea and vomiting) Qty: 14 0RF Discharge Orders: Discharge ED (Routine); Ordered 09/13/24 Ordered By: Janki Sheikh Referrals: Farideh Metz FNP [Primary Care Provider, Unknown] Discharge Diet: Advance as tolerated Discharge Activity: Resume usual activity Patient Instructions: Heat Exhaustion (ED) Print Language: Nigerien Coding Level of Care Code ED Faculty I On Call Medical Assistant for Jonh Jones
[2024-09-13] MEDS: ondansetron hcl ODT 4 mg Tab PO (14:22)
[2024-09-13 14:27] VITALS: BP 114/72; PULSE 78; O2SAT 100
--- NOTE | 2024-09-13 14:28 | PC.NURSE ---
pt given water and sandwich.
[2024-09-13 15:15] VITALS: BP 95/67; PULSE 87; O2SAT 98
== END 2024-09-13 15:21 | disposition home or self-care (01) ==
PROVIDERS: Emergency Provider Emergency Medicine; PCP Nurse Practitioner Family
DX: T67.5XXA Heat exhaustion, unspecified, initial encounter (principal); R53.1 Weakness; X58.XXXA Exposure to other specified factors, initial encounter
CPT/HCPCS: 99283; Q0162

== ENCOUNTER 2024-12-20 21:23 | Emergency (ER) | payer MEDICAID, SELFPAY ==
[2024-12-20 21:47] VITALS: BP 127/87; PULSE 81; RESP 18; TEMP 36.4; O2SAT 100; BMI 48.5
[2024-12-20 22:00] LABS: Hematocrit 35.9 % (36-47); Hemoglobin 11.80 g/dL (11.27-16.99); Mean Corpuscular HGB Conc 32.9 g/dL (30-55); Mean Corpuscular Hemoglobin 30.3 pg (27-33); Mean Corpuscular Volume 92.3 fl (85-98); Nucleated Red Blood Cells % 0 %; Platelet Count 256 10^3/cmm (157-399); Red Blood Count 3.89 10^6/uL (3.85-5.65); White Blood Count 13.03 10^3/uL (3.29-11.43)
[2024-12-20 22:10] LABS: Glucose Urine UA Negative (Normal); Nitrate Urine Negative (Negative); Specific Gravity, Urine 1.020 (1.005-1.030)
[2024-12-20 22:13] LABS: Add Urine Microscopic? YES
[2024-12-20 22:31] LABS: Alanine Aminotransferase 11 U/L (0-33); Albumin Level 3.6 g/dL (3.5-5.2); Alkaline Phosphatase 56 U/L (35-105); Anion Gap 17.4 (5-19); Aspartate Amino Transferase 12 U/L (0-32); Blood Urea Nitrogen 6 mg/dL (6-20); Calcium 9.0 mg/dL (8.5-10.5); Carbon Dioxide 19 mmol/L (22-29); Chloride 104 mmol/L (98-107); Creatinine Clr Calc Pharmacy 285.6703; Globulin 3.1 g/dL (1.3-4.6); Glucose 76 mg/dL (65-115); Lipase 23 U/L (13-60); Osmolality Calculated 278 mOsm/kg (285-295); Potassium 4.4 mmol/L (3.5-5.1); Sodium 136 mmol/L (136-145); Total Protein 6.7 g/dL (6.6-8.7)
--- NOTE | 2024-12-20 23:15 | W.ED.ABDPA2 ---
HPI - Abdominal Pain General: Chief Complaint: Abdominal Pain Stated Complaint: ABD PAIN unknown wks of pregnacy Time Seen by Provider: 12/20/24 22:09 Source: patient Mode of arrival: ambulatory Limitations: no limitations History of Present Illness: 24-year-old female who states that she is currently she unsure how far along the last menstrual period was in September. She states that today she has been having some diffuse abdominal cramping start her upper abdomen now radiate to her lower abdomen rates pain a 2 out of 10 denies any severe pain denies any vaginal bleeding denies any fever she has had vomiting throughout the . Associated Symptoms: Reports nausea and vomiting; Denies chills, diarrhea and fever(s) Related Data Date of Last Menstrual Period: 09/24/24 Previous Rx's ?Medication ?Instructions ?Recorded ondansetron 4 mg disintegrating 4 mg PO Q6H PRN nausea and 09/13/24 tablet vomiting #14 tabs cephalexin 500 mg capsule 500 mg PO TID 7 days #21 caps 12/20/24 ondansetron 4 mg disintegrating 4 mg PO Q6H PRN nausea and 12/20/24 tablet vomiting #14 tabs Allergies Allergy/AdvReac Type Severity Reaction Status Date / Time amoxicillin Allergy ADR-Chest Verified 09/13/24 14:18 Pain Review of Systems Const: Denies: fever(s), chills, body aches or change in appetite ENMT: Denies: throat pain or dental pain Card: Denies: chest pain Resp: Denies: dyspnea GI: Reports: abdominal pain, nausea and vomiting; Denies: diarrhea Musc: Denies: neck pain or back pain Skin/Breast: Denies: rash Neuro: Denies: headache(s) PFSH ED PFSH: Social History Smoking and tobacco/nicotine status: current some day tobacco/nicotine user Female Reproductive History: Date of last menstrual period: 09/24/24 Physical Exam Const: COMMON NORMALS: no acute distress, patient oriented x3 and healthy appearing HENMT: COMMON NORMALS: normocephalic and atraumatic HEAD & SCALP: normocephalic and atraumatic Eye: COMMON NORMALS: conjunctivae normal CONJUNCTIVA: Yes conjunctivae normal Neck/C-Spine: COMMON NORMALS: full ROM and supple Chest: COMMONS NORMALS: normal inspection of the chest Resp: COMMON NORMALS: normal respiratory effort Cardio: COMMON NORMALS: regular rate, regular rhythm and No murmurs present (Cardio) RATE: regular rate RHYTHM: regular rhythm GI: COMMON NORMALS: Normal to inspection, nondistended, normoactive bowel sounds present, Soft to palpation, non-tender and no masses PALPATION: Yes Soft to palpation Extremity: COMMON NORMALS: normal to inspection and full ROM Neuro: COMMON NORMALS: patient oriented x3, moves all extremities and no focal motor deficits Psych: COMMON NORMALS: mental status grossly normal, Normal thought process present and cooperative THOUGHT PROCESS: Normal thought process present Skin: COMMON NORMALS: no rashes or lesions noted and no wounds GENERAL SKIN EXAM: no rashes or lesions noted Course Vital Signs: Vital signs: Vital Signs Temperature 97.6 F 12/20/24 21:47 Pulse Rate 81 12/20/24 21:47 Respiratory Rate 18 12/20/24 21:47 Blood Pressure 127/87 12/20/24 21:47 Pulse Oximetry 100 12/20/24 21:47 Oxygen Delivery Me thod Room Air 12/20/24 21:47 MDM - Abdominal Pain Medical Decision Making Patient presents here with abdominal pain in her abdominal exam here is benign no signs of cholecystitis or appendicitis blood works normal has a slight UTI. Did a bedside ultrasound that showed IUP consistent with dates heart rate 148 will prescribe her Keflex Zofran she has follow-up tomorrow she is follow-up as scheduled return if worsening. Medical Records I reviewed the patient's medical records. Lab Data I reviewed the patient's lab results. 12/20/24 21:49 12/20/24 21:49 Labs/Radiology: Laboratory Results WBC 13.03 10^3/uL (3.29-11.43) H 12/20/24 21:49 RBC 3.89 10^6/uL (3.85-5.65) 12/20/24 21:49 Hgb 11.80 g/dL (11.27-16.99) 12/20/24 21:49 Hct 35.9 % (36-47) L 12/20/24 21:49 MCV 92.3 fl (85-98) 12/20/24 21:49 MCH 30.3 pg (27-33) 12/20/24 21:49 MCHC 32.9 g/dL (30-55) 12/20/24 21:49 RDW 13.2 % (12.1-15.1) 12/20/24 21:49 Plt Count 256 10^3/cmm (157-399) 12/20/24 21:49 MPV 9.1 fL (7.4-10.4) 12/20/24 21:49 Neut % (Auto) 67.7 % 12/20/24 21:49 Lymph % (Auto) 23.2 % 12/20/24 21:49 [place] % (Auto) 6.1 % 12/20/24 21:49 Eos % (Auto) 0.7 % 12/20/24 21:49 Baso % (Auto) 0.5 % 12/20/24 21:49 Neut # (Auto) 8.82 10^3/uL (1.8-7.7) H 12/20/24 21:49 Lymph # (Auto) 3.0 10^3/uL (0.8-4.8) 12/20/24 21:49 [place] # (Auto) 0.8 10^3/uL (0.2-0.9) 12/20/24 21:49 Eos # (Auto) 0.1 10^3/uL (0.0-0.8) 12/20/24 21:49 Baso # (Auto) 0.1 10^3/uL (0.0-0.1) 12/20/24 21:49 Nucleated RBC % (auto) 0 % 12/20/24 21:49 Nucleated RBCs # 0.0 /100WBC 12/20/24 21:49 Sodium 136 mmol/L (136-145) 12/20/24 21:49 Potassium 4.4 mmol/L (3.5-5.1) 12/20/24 21:49 Chloride 104 mmol/L (98-107) 12/20/24 21:49 Carbon Dioxide 19 mmol/L (22-29) L 12/20/24 21:49 Anion Gap 17.4 (5-19) 12/20/24 21:49 BUN 6 mg/dL (6-20) 12/20/24 21:49 Creatinine 0.4 mg/dL (0.5-0.9) L 12/20/24 21:49 GFR Calculation 194.5 mL/min (90-130) H 12/20/24 21:49 Glucose 76 mg/dL (65-115) 12/20/24 21:49 Calculated Osmolality 278 mOsm/kg (285-295) L 12/20/24 21:49 Calcium 9.0 mg/dL (8.5-10.5) 12/20/24 21:49 Total Bilirubin 0.2 mg/dL (0.15-1.2) 12/20/24 21:49 AST 12 U/L (0-32) 12/20/24 21:49 ALT 11 U/L (0-33) 12/20/24 21:49 Alkaline Phosphatase 56 U/L (35-105) 12/20/24 21:49 Total Protein 6.7 g/dL (6.6-8.7) 12/20/24 21:49 Albumin 3.6 g/dL (3.5-5.2) 12/20/24 21:49 Globulin 3.1 g/dL (1.3-4.6) 12/20/24 21:49 Lipase 23 U/L (13-60) 12/20/24 21:49 Ser , Semi-Qnt 97713.00 mIU/mL 12/20/24 21:49 Urine Color Yellow (Yellow) 12/20/24 21:48 Urine Appearance Clear (CLEAR) 12/20/24 21:48 Urine pH 5.5 (5-7) 12/20/24 21:48 Ur Specific [place] 1.020 (1.005-1.030) 12/20/24 21:48 Urine Protein Negative (Negative) 12/20/24 21:48 Urine Glucose (UA) Negative (Normal) 12/20/24 21:48 Urine Ketones Negative (Negative) 12/20/24 21:48 Urine Blood Negative (Negative) 12/20/24 21:48 Urine Nitrate Negative (Negative) 12/20/24 21:48 Urine Bilirubin Negative (Negative) 12/20/24 21:48 Urine Urobilinogen 0.2 mg/dL (Negative) 12/20/24 21:48 Ur Leukocyte Esterase 2+ (Negative) A 12/20/24 21:48 Urine RBC 0-2 /hpf (0-2) 12/20/24 21:48 Urine WBC 21-50 /hpf (0-5) H 12/20/24 21:48 Ur Squamous Epith Cells 0-5 /hpf (0-5) 12/20/24 21:48 Amorphous Sediment Not Reportable 12/20/24 21:48 Urine Bacteria Trace /hpf (NONE) 12/20/24 21:48 Hyaline Casts 0.40 /lpf 12/20/24 21:48 No radiology studies performed this visit Discharge Plan Discharge Patient Disposition: Home Clinical Impression: Acute cystitis, Abdominal pain affecting Condition: Stable Prescriptions: New cephalexin 500 mg capsule 500 mg PO TID 7 Days Qty: 21 0RF ondansetron 4 mg tablet,disintegrating 4 mg PO Q6H PRN (Reason: nausea and vomiting) Qty: 14 0RF No Action ondansetron 4 mg tablet,disintegrating 4 mg PO Q6H PRN (Reason: nausea and vomiting) Qty: 14 0RF Discharge Orders: Discharge ED (Routine); Ordered 12/20/24 Ordered By: Janki Sheikh Referrals: Farideh Metz FNP [Primary Care Provider, Unknown] Discharge Diet: Advance as tolerated Discharge Activity: Resume usual activity Patient Instructions: Urinary Tract Infection in Women (ED), Abdominal Pain in (ED) Print Language: Malay Coding Level of Care Code 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
[2024-12-20] MEDS: ondansetron hcl ODT 4 mg Tab PO (23:24)
== END 2024-12-20 23:31 | disposition home or self-care (01) ==
PROVIDERS: Emergency Provider Emergency Medicine; PCP Nurse Practitioner Family
DX: O23.10 Infections of bladder in pregnancy, unspecified trimester (principal); O26.899 Other specified pregnancy related conditions, unspecified trimester; R10.9 Unspecified abdominal pain
CPT/HCPCS: 36415; 80053; 81001; 83690; 84702; 85025; 87086; 99283; J9999; Q0162

== ENCOUNTER 2024-12-28 16:21 | Emergency (ER) | payer MEDICAID, SELFPAY ==
[2024-12-28 16:30] VITALS: BP 124/78; PULSE 91; RESP 17; TEMP 36.9; O2SAT 95; BMI 50.3
--- NOTE | 2024-12-28 16:54 | XRR_ITS ---
PROCEDURE INFORMATION: Exam: XR Chest Exam date and time: 12/28/2024 4:58 PM Age: 24 years old Clinical indication: Cough; Additional info: Congestion TECHNIQUE: Imaging protocol: Radiologic exam of the chest. Views: 1 view. COMPARISON: CR XR chest 1V portable [id number] 03/18/2024 11:34 PM FINDINGS: Lungs: No infiltrates. No suspicious masses or nodules. Pleural spaces: No pleural effusions or pneumothorax. Heart/Mediastinum: Heart size within normal limits. No pulmonary vascular congestion. Bones/joints: No significant osseous lesion. No fractures. XR/XR chest 1V portable [id number] IMPRESSION: No acute cardiopulmonary findings radiographically.
[2024-12-28 18:34] VITALS: BP 143/69; PULSE 92; O2SAT 98
--- NOTE | 2024-12-28 19:36 | W.ED.URI ---
HPI - URI/Sore Throat General: Chief Complaint: Upper Respiratory Infection Stated Complaint: Cristóbal virus and getting worse Time Seen by Provider: 12/28/24 17:36 History of Present Illness: 24-year-old female history of obesity, 16 weeks estimated gestational age with [employer] follow-up and confirmed IUP, presenting with 1 week history of viral URI symptoms, previously diagnosed with rhinovirus a week ago, has been taking cetirizine and nasal saline spray, reports symptoms are worsening, reports that the nasal congestion is horrible she feels postnasal drip going to the back of her throat, chest congestion and sensation of shortness of breath. She denies chest pain, denies fever, denies hemoptysis, denies leg swelling or calf tenderness, no abdominal pain or abnormal vaginal bleeding or discharge Related Data Previous Rx's ?Medication ?Instructions ?Recorded ondansetron 4 mg disintegrating 4 mg PO Q6H PRN nausea and 09/13/24 tablet vomiting #14 tabs ondansetron 4 mg disintegrating 4 mg PO Q6H PRN nausea and 12/20/24 tablet vomiting #14 tabs Allergies Allergy/AdvReac Type Severity Reaction Status Date / Time amoxicillin Allergy ADR-Chest Verified 09/13/24 14:18 Pain PFSH ED PFSH: Social History Smoking and tobacco/nicotine status: current some day tobacco/nicotine user Physical Exam Narrative: EXAM NARRATIVE: Gen: A&Ox4, no acute distress, nontoxic appearing, obese HEENT: Normocephalic, atraumatic, no scleral icterus, no bulging effusion or erythema to the bilateral tympanic membrane, nasal turbinates are symmetrically erythematous without purulent drainage to the nose, there is posterior oropharyngeal cobblestoning of the mucosa without exudates or significant asymmetric tonsillar erythema, uvula midline, no hoarse voice no trismus no stridor tolerating secretions Neck: Supple, full range of motion, no observable masses Lungs: No Respiratory distress, Lungs clear to auscultation bilaterally no rales, rhonchi, wheezing CV: Regular rate and rhythm, no murmur, no pitting edema to lower extremities bilaterally Abdomen: Soft, nondistended, nontender to palpation MSK: No joint swelling, FROM all 4 extremities Skin: No rashes, petechiae, lesions. Normal color per patient. Neuro: Alert and oriented, no slurred speech, sensation and strength grossly intact all 4 extremities Psych: Appropriate for situation. Course Vital Signs: Vital signs: Vital Signs Temperature 98.4 F 12/28/24 16:30 Pulse Rate 92 12/28/24 18:34 Respiratory Rate 17 12/28/24 16:30 Blood Pressure 143/69 12/28/24 18:34 Pulse Oximetry 98 12/28/24 18:34 Oxygen Delivery Me thod Room Air 12/28/24 16:30 MDM - URI/Sore Throat Medical Decision Making Generally healthy 24-year-old female history obesity and status 16 weeks presenting with 7 days to 10 days of a persistent viral URI type syndrome, predominant complaint shortness of breath persistent cough and nasal congestion, currently on cetirizine and nasal saline, chest x-ray negative, vital signs normal, physical exam consistent with URI without signs of deep space neck infection or wheezing to suggest pneumonia or acute bacterial bronchitis, plan for addition of sparing use of fluticasone and Robitussin DM for symptomatic control after discussion with the patient of the relatively untested nature of these medications in there does not appear to be significant risk that is known. Recommend [employer] follow-up for further evaluation Lab Data Radiology Impressions Chest X-Ray 12/28/24 16:54 IMPRESSION: No acute cardiopulmonary findings radiographically. All radiology interpretation(s) finalized by discharge ED provider radiology interpretation(s): Chest x-ray negative for bacterial consolidation Discharge Plan Discharge Patient Disposition: Home Clinical Impression: Upper respiratory infection Qualifiers: URI type: unspecified viral URI Qualified Code(s): J06.9 - Acute upper respiratory infection, unspecified Condition: Stable Prescriptions: No Action ondansetron 4 mg tablet,disintegrating 4 mg PO Q6H PRN (Reason: nausea and vomiting) Qty: 14 0RF ondansetron 4 mg tablet,disintegrating 4 mg PO Q6H PRN (Reason: nausea and vomiting) Qty: 14 0RF Discharge Orders: Discharge ED (Routine); Ordered 12/28/24 Ordered By: Alek Edwards Referrals: Farideh Metz FNP [Primary Care Provider, Unknown] Patient Instructions: Upper Respiratory Infection (ED), Patient Portal & Mel[facility] Instructions Activity Restrictions/Additional Instructions: You were seen for persistent upper respiratory tract infection type symptoms, your chest x-ray is negative, your vital signs in the ER showed a normal oxygen level and otherwise normal vital signs, at this time given your status there are not many medications you can take but you can try Tylenol for pain, cetirizine for allergy/congestion symptoms, Robitussin DM sparingly for cough particularly at night, fluticasone nasal spray for sinus congestion. Follow-up with your [employer]ER for further recommendations, return to the ER if your symptoms worsen you develop worsening shortness of breath fever. 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
[2024-12-28 19:52] VITALS: BP 144/80; PULSE 81; RESP 16; O2SAT 100
== END 2024-12-28 19:52 | disposition home or self-care (01) ==
PROVIDERS: Emergency Provider Student in an Organized Health Care Education/Training Program; PCP Nurse Practitioner Family
DX: O99.512 Diseases of the respiratory system complicating pregnancy, second trimester (principal); Z3A.16 16 weeks gestation of pregnancy; J06.9 Acute upper respiratory infection, unspecified; Z72.0 Tobacco use
CPT/HCPCS: 71045; 99283

== ENCOUNTER → 2024-12-31 08:10 | Outpatient (BNVA) | payer MEDICAID, SELFPAY | PROVIDERS: PCP Nurse Practitioner Family; Visit Provider Obstetrics & Gynecology | DX: N91.2 Amenorrhea, unspecified (principal) | CPT/HCPCS: 81025 ==

== ENCOUNTER 2025-01-03 14:31 | Outpatient (CLI) | payer MEDICAID, SELFPAY ==
--- NOTE | 2025-01-03 14:30 | USR_ITS ---
PROCEDURE INFORMATION: Exam: US After First Trimester, Transabdominal Exam date and time: 01/03/2025 3:05 PM Age: 24 years old Clinical indication: Screening exam; Routine US, uterus; Additional info: Z34.90 - encounter for supervision of normal , u. . . , LABS AND CLINICAL REPORTS: Last menstrual period start date: 09/16/2024 Gestational age (Established): 15 w 4 d Estimated due date (Established): 06/23/2025 TECHNIQUE: Imaging protocol: Real-time transabdominal obstetrical ultrasound of the maternal pelvis and a second or third trimester with image documentation. COMPARISON: CT abdomen pelvis w con* [id number] 10/08/2020 3:45 AM FINDINGS: Gestation: Single live intrauterine gestation. heart rate: 152 bpm presentation and position: Breech. Placenta: Unremarkable. No subchorionic bleed. Placenta is anterior. Amniotic fluid (Qualitative): Amniotic fluid is normal for gestational age. BIOMETRY: Gestational age (AUA): 23 weeks 0 days, greater than clinical dates Estimated due date (AUA): 05/02/2025 Estimated weight: 550.38 g. EFW by AC, BPD, FL, HC, [place] 1985, >97 percentile Biparietal diameter (BPD): 5.55 cm. EGA (BPD) is 22 w 6 d. 97 % percentile Head circumference (HC): 21.11 cm. EGA (HC) is 23 w 1 d. 97 % percentile Abdominal circumference (AC): 18.02 cm. EGA (AC) is 22 w 6 d. 97 % percentile Femur length (FL): 4.03 cm. EGA (FL) is 23 w 0 d. 97 % percentile HC/AC: 1.17. (Normal range: 1.05 - 1.21) FL/HC: 19.09. (Normal range: 19.2 - 20.8) FL/BPD: 72.61. (Normal range: 71 - 87) FL/AC: 22.36. (Normal range: 20 - 24) MATERNAL: Uterus: Unremarkable. Cervix: Cervical length measures 4.2 cm. Right ovary/adnexa: Obscured by lack of adequate acoustic window. Left ovary/adnexa: Obscured by lack of adequate acoustic window. Intraperitoneal space: No intraperitoneal free fluid. US/US OB >= 14 weeks fetus [id number] IMPRESSION: 1. Single live intrauterine gestation with normal heart rate. 2. Estimated gestational age 23 weeks 0 days. Size greater than dates. 3. Currently breech position.
== END 2025-01-03 14:32 | disposition home or self-care (01) ==
PROVIDERS: PCP Nurse Practitioner Family; Visit Provider Obstetrics & Gynecology
DX: Z34.92 Encounter for supervision of normal pregnancy, unspecified, second trimester (principal); Z3A.23 23 weeks gestation of pregnancy
CPT/HCPCS: 76805

== ENCOUNTER → 2025-01-07 08:10 | Outpatient (BNVA) | payer MEDICAID, SELFPAY | PROVIDERS: PCP Nurse Practitioner Family; Visit Provider Obstetrics & Gynecology | DX: O09.32 Supervision of pregnancy with insufficient antenatal care, second trimester (principal); Z3A.00 Weeks of gestation of pregnancy not specified | CPT/HCPCS: 80307; 84315; 85025; 86592; 86762; 86803; 86850; 86900; 87086; 87340; 87491; 87591; 87661; 87806 ==